=== PATIENT | male | born 1960 | race Caucasian/White ===

== ENCOUNTER 2017-06-19 15:57 | Inpatient (IN) | payer MEDICAID ==
[~2017-06-19] VITALS: Ht 190.5 cm; Wt 96.4 kg
[~2017-06-19 15:57] MED LIST: ACET-1757 PO; AMIT10TA PO; ASPI325T17 PO; ATEN100T; ATEN100T PO; ATOR40TA78 PO; CANA300T PO; CELE200C PO; DIAZ2TAB PO; DIAZ5TAB PO; DIAZ5TAB4 PO; FENO160T PO; GABA-826 PO; GLIP5TAB10 PO; GLIP5TAB3 PO; HYDR-3237 PO; KETO10TA PO; LANS30CA60 PO; LEVO500T47 PO; LIRA0.6P INJ; LOSA100T6 PO; LOSA50TA6 PO; MECL25TA2 PO; METF10002 PO; OXYC5TAB3 PO; PANT40TA3 PO; PIOG15TA22 PO; PRAV40TA2 PO; SIMV20TA3; SITA100T PO; SUMA50TA3 PO; TOPI100T8 PO; TOPI25TA52 PO; VERA120T5 PO; VERA180C4 PO; VERA240C4 PO; losartan
[2017-06-19] MEDS ORDERED: SODIUM CHLORIDE 0.9% 1,000ML IVBOLUS ONE (17:00)
[2017-06-19] MEDS ORDERED: METOCLOPRAMIDE 5 MG/ML, 2ML IVPush ONE (17:00)
[2017-06-19] MEDS ORDERED: DIPHENHYDRAMINE 50 MG/ML, 1ML IVPush ONE (17:00)
[2017-06-19 17:16] LABS: PH, VENOUS 7.379 pH (7.320-7.420)
[2017-06-19 17:24] LABS: FIO2 ROOM AIR %; HEMATOCRIT 46.1 % (39.2-51.8); HEMOGLOBIN 15.4 g/dL (13.7-18.0); WHITE BLOOD COUNT 7.3 x10^3/uL (3.4-10)
[2017-06-19 17:26] LABS: ASPARTATE AMINO TRANSFERASE 12 U/L (15-37); BLOOD UREA NITROGEN 15 mg/dL (7-18)
[2017-06-19 17:32] LABS: ACETAMINOPHEN < 2 mcg/mL (10-30)
[2017-06-19 17:46] LABS: DAU SCREEN DISCLAIMER
[2017-06-19] MEDS ORDERED: DIPHENHYDRAMINE 50 MG/ML, 1ML ONE (18:43)
[2017-06-19] MEDS ORDERED: METOCLOPRAMIDE 5 MG/ML, 2ML ONE (18:43)
[2017-06-19] MEDS ORDERED: ONDANSETRON 2MG/ML, 2ML IVPush PRN (20:00)
[2017-06-19] MEDS ORDERED: POLYETHYLENE GLYCOL 17 GM PACKET PO PRN (20:00)
[2017-06-19] MEDS ORDERED: DOCUSATE 100 MG CAPSULE PO PRN (20:00)
[2017-06-19] MEDS: NS + 20MEQ KCL 1,000 ML IV SCH (20:56)
[2017-06-19 21:00] VITALS: BP 127/57
[2017-06-19] MEDS: FENOFIBRATE 145 MG TABLET PO SCH (21:43)
[2017-06-19] MEDS: ATORVASTATIN 40 MG TABLET PO SCH (21:43)
[2017-06-19] MEDS: GABAPENTIN 100 MG CAPSULE PO SCH (21:43)
[2017-06-19] MEDS: INSULIN ASPART 100 UNITS/ML, PEN SQ-INSULIN SCH (21:44)
[2017-06-19] MEDS: ENOXAPARIN 40 MG/0.4 ML SQ SCH (21:44)
[2017-06-19] MEDS: ACETAMINOPHEN 325 MG TABLET PO PRN (23:33)
[2017-06-19] MEDS: DIAZEPAM 2 MG TABLET PO PRN (23:33)
[2017-06-20 02:10] VITALS: BP 111/61
[2017-06-20] MEDS: NS + 20MEQ KCL 1,000 ML IV SCH (03:05)
[2017-06-20] MEDS: ACETAMINOPHEN 325 MG TABLET PO PRN ×3 (03:32→22:28)
[2017-06-20 05:29] LABS: BLOOD UREA NITROGEN 16 mg/dL (7-18)
[2017-06-20] MEDS: INSULIN ASPART 100 UNITS/ML, PEN SQ-INSULIN SCH ×4 (07:52→22:40)
[2017-06-20 08:09] VITALS: BP 138/98
[2017-06-20] MEDS: GABAPENTIN 100 MG CAPSULE PO SCH ×3 (08:58→22:20)
[2017-06-20] MEDS: PIOGLITAZONE 15 MG TABLET PO SCH (08:58)
[2017-06-20] MEDS: SENNA/DOCUSATE TABLET PO SCH (08:58)
[2017-06-20] MEDS: VERAPAMIL ER 180MG TABLET.ER PO SCH (08:58)
[2017-06-20 12:56] VITALS: BP 98/61
[2017-06-20 20:25] VITALS: BP 126/71
[2017-06-20] MEDS: ATORVASTATIN 40 MG TABLET PO SCH (22:20)
[2017-06-20] MEDS: FENOFIBRATE 145 MG TABLET PO SCH (22:20)
[2017-06-20] MEDS: ENOXAPARIN 40 MG/0.4 ML SQ SCH (22:20)
[2017-06-20] MEDS: DIAZEPAM 2 MG TABLET PO PRN (22:29)
[2017-06-21] MEDS ORDERED: DIPHENHYDRAMINE 25 MG CAPSULE PO ONE
[2017-06-21 03:02] VITALS: BP 124/86
[2017-06-21 05:38] LABS: BLOOD UREA NITROGEN 13 mg/dL (7-18)
[2017-06-21] MEDS: INSULIN ASPART 100 UNITS/ML, PEN SQ-INSULIN SCH ×4 (07:59→21:34)
[2017-06-21] MEDS: GABAPENTIN 100 MG CAPSULE PO SCH ×3 (08:05→21:34)
[2017-06-21] MEDS: PIOGLITAZONE 15 MG TABLET PO SCH (08:05)
[2017-06-21] MEDS: VERAPAMIL ER 180MG TABLET.ER PO SCH (08:05)
[2017-06-21] MEDS: SENNA/DOCUSATE TABLET PO SCH (08:06)
[2017-06-21 08:09] VITALS: BP 139/98
[2017-06-21 10:31] VITALS: BP 137/83
[2017-06-21] MEDS: ACETAMINOPHEN 325 MG TABLET PO PRN ×2 (12:45→19:46)
[2017-06-21] MEDS ORDERED: LORazepam 2 MG/ML, 1ML IM PRN (14:00)
[2017-06-21] MEDS ORDERED: OLANZAPINE 2.5 MG TABLET PO ONE (14:00)
[2017-06-21] MEDS ORDERED: CITALOPRAM 20 MG TABLET PO ONE (14:00)
[2017-06-21] MEDS ORDERED: LORazepam 1MG TABLET PO PRN (14:00)
[2017-06-21 14:54] VITALS: BP 137/79
[2017-06-21] MEDS: DIAZEPAM 2 MG TABLET PO PRN (19:46)
[2017-06-21 20:05] VITALS: BP 132/96
[2017-06-21] MEDS ORDERED: ENOXAPARIN 40 MG/0.4 ML SQ SCH (21:00)
[2017-06-21] MEDS: ATORVASTATIN 40 MG TABLET PO SCH (21:34)
[2017-06-21] MEDS: FENOFIBRATE 145 MG TABLET PO SCH (21:34)
[2017-06-22 01:30] VITALS: BP 121/78
[2017-06-22] MEDS: PIOGLITAZONE 15 MG TABLET PO SCH (08:35)
[2017-06-22] MEDS: INSULIN ASPART 100 UNITS/ML, PEN SQ-INSULIN SCH ×3 (08:35→17:12)
[2017-06-22] MEDS: VERAPAMIL ER 180MG TABLET.ER PO SCH (08:35)
[2017-06-22] MEDS: GABAPENTIN 100 MG CAPSULE PO SCH ×2 (08:35→16:56)
[2017-06-22 08:41] VITALS: BP 138/86
[2017-06-22] MEDS: ACETAMINOPHEN 325 MG TABLET PO PRN (08:47)
[2017-06-22] MEDS ORDERED: SENNA/DOCUSATE TABLET PO SCH ×2 (09:00)
[2017-06-22] MEDS: metFORMIN 500 MG TABLET PO SCH ×2 (09:00→16:56)
[2017-06-22 14:56] VITALS: BP 131/84
[2017-06-22] MEDS ORDERED: LORazepam 1MG TABLET PO PRN (19:30)
[2017-06-22] MEDS ORDERED: DOCUSATE 100 MG CAPSULE PO PRN (19:30)
[2017-06-22] MEDS ORDERED: ONDANSETRON 2MG/ML, 2ML IVPush PRN (19:30)
[2017-06-22 19:34] VITALS: BP 120/79
[2017-06-22] MEDS ORDERED: CITALOPRAM 20 MG TABLET PO SCH (21:00)
[2017-06-22] MEDS ORDERED: OLANZAPINE 2.5 MG TABLET PO SCH (21:00)
[2017-06-22] MEDS ORDERED: INSULIN DETEMIR 100 UNITS/ML, PEN SQ-INSULIN SCH (21:00)
[2017-06-22] MEDS ORDERED: ENOXAPARIN 40 MG/0.4 ML SQ SCH (21:00)
[2017-06-23] MEDS ORDERED: SENNA/DOCUSATE TABLET PO SCH (09:00)
== END 2017-06-22 19:35 | DRG 638 ==
LOC: ED 16:50 → EDIP 18:55 → 4NOR 20:34 → 4WST 06-21 09:01 → 3E 06-22 12:33
PROVIDERS: ADMIT Family Medicine; ATTEND Family Medicine
DX: E11.65 Type 2 diabetes mellitus with hyperglycemia (principal); E44.0 Moderate protein-calorie malnutrition; R45.851 Suicidal ideations; E78.00 Pure hypercholesterolemia, unspecified; E78.5 Hyperlipidemia, unspecified; R35.0 Frequency of micturition; I10 Essential (primary) hypertension; Z83.3 Family history of diabetes mellitus; Z86.73 Personal history of transient ischemic attack (TIA), and cerebral infarction without residual deficits; Z91.14 Patient's other noncompliance with medication regimen; Z68.26 Body mass index [BMI] 26.0-26.9, adult
CPT/HCPCS: 36415; 71010; 80048; 80053; 80307; 80329; 81003; 82010; 82803; 82962; 83735; 85025; 93005; 96361; 96374; 96375; J1650; J1815; J3480; G0480; J1200; J2060; J2765; J7030; Q0163

== ENCOUNTER 2017-12-01 15:58 | Emergency (ER) | payer MEDICAID ==
[~2017-12-01] VITALS: Ht 190.5 cm; Wt 102.5 kg
[2017-12-01 16:36] LABS: BASOPHILS % (AUTO) 1 % (0-1); EOSINOPHILS # (AUTO) 0.28 x10^3/uL (0-0.4); EOSINOPHILS % (AUTO) 3 % (1-7); LYMPHOCYTES % (AUTO) 21 % (22-44); MD NO; MEAN CORPUSCULAR HEMOGLOBIN 29.6 pg (27.5-34.5); MEAN CORPUSCULAR HGB CONC 33.1 g/dL (33.2-36.2); MEAN CORPUSCULAR VOLUME 89.4 fL (81-97); MEAN PLATELET VOLUME 8.5 fL (7.4-10.4); MONOCYTES # (AUTO) 0.83 x10^3/uL (0.2-0.8); MONOCYTES % (AUTO) 8 % (2-9); NEUTROPHILS # (AUTO) 7.53 x10^3/uL (1.8-6.8); NEUTROPHILS % (AUTO) 68 % (42-75); PLATELET COUNT 314 x10^3/uL (130-400); RED BLOOD COUNT 5.43 x10^6/uL (4.38-5.82); RED CELL DISTRIBUTION WIDTH 13.3 % (9.4-14.8)
[2017-12-01 16:43] LABS: ALANINE AMINOTRANSFERASE 23 U/L (12-78); ANION GAP 10 mmol/L (5-15); CALCIUM 8.9 mg/dL (8.5-10.1); CHLORIDE 107 mmol/L (98-107); CREATININE 1.12 mg/dL (0.7-1.3)
[2017-12-01 16:46] LABS: ALKALINE PHOSPHATASE 91 U/L (45-117); BILIRUBIN,TOTAL 0.6 mg/dL (0.2-1.0)
[2017-12-01] MEDS ORDERED: ONDANSETRON 2MG/ML, 2ML IVPush ONE (20:00)
[2017-12-01] MEDS ORDERED: MORPHINE SULFATE 4 MG/ML, 1ML IVPush PRN (20:00)
[2017-12-01] MEDS ORDERED: SODIUM CHLORIDE 0.9% 1,000ML IVBOLUS ONE (20:00)
[2017-12-01 20:05] LABS: MICROSCOPIC NOT IND
[2017-12-01 20:19] LABS: CULTURE INDICATED? NO
[2017-12-01] MEDS ORDERED: OMNIPAQUE 350 MG/ML, 100ML BOTTLE ONE (20:37)
[2017-12-01] MEDS ORDERED: ONDANSETRON 2MG/ML, 2ML ONE (20:46)
[2017-12-01] MEDS ORDERED: MORPHINE SULFATE 4 MG/ML, 1ML ONE (20:46)
[2017-12-01 22:17] LABS: CLOSTRIDIUM DIFFICILE ANTIGEN NEGATIVE; CLOSTRIDIUM DIFFICILE TOXIN NEGATIVE (Negative)
[2017-12-01 22:37] VITALS: BP 138/94
== END 2017-12-01 22:41 | disposition home or self-care (01) ==
LOC: ED 22:09
DX: K57.30 Diverticulosis of large intestine without perforation or abscess without bleeding (principal); E11.65 Type 2 diabetes mellitus with hyperglycemia; R19.7 Diarrhea, unspecified; E78.00 Pure hypercholesterolemia, unspecified; I10 Essential (primary) hypertension; E78.5 Hyperlipidemia, unspecified; E66.9 Obesity, unspecified
CPT/HCPCS: 36415; 74177; 80053; 81003; 83690; 85025; 87324; 89055; 96361; 96374; 96375; 99285; J2405; J7030; Q9967

== ENCOUNTER 2018-04-02 20:10 | Emergency (ER) | payer MEDICAID ==
[~2018-04-02] VITALS: Ht 190.5 cm; Wt 104.5 kg
[2018-04-02 20:10] VITALS: BP 138/100
[2018-04-02] MEDS ORDERED: GABA300C10 PO (20:36)
[2018-04-02] MEDS ORDERED: DULA0.75 SQ (20:36)
[2018-04-02] MEDS ORDERED: DOXEPIN PO (20:36)
[2018-04-02] MEDS ORDERED: ASPI-496 PO (20:36)
[2018-04-02] MEDS ORDERED: METF500T5 PO (20:36)
== END 2018-04-02 21:52 | disposition home or self-care (01) ==
LOC: ED 21:46
DX: S92.535A Nondisplaced fracture of distal phalanx of left lesser toe(s), initial encounter for closed fracture (principal); E78.5 Hyperlipidemia, unspecified; I10 Essential (primary) hypertension; E11.9 Type 2 diabetes mellitus without complications; E78.00 Pure hypercholesterolemia, unspecified; Z86.73 Personal history of transient ischemic attack (TIA), and cerebral infarction without residual deficits; W20.8XXA Other cause of strike by thrown, projected or falling object, initial encounter; Y93.89 Activity, other specified; Y99.8 Other external cause status; Y92.009 Unspecified place in unspecified non-institutional (private) residence as the place of occurrence of the external cause
CPT/HCPCS: 99284

== ENCOUNTER 2018-06-02 12:26 | Inpatient (IN) | payer MEDICAID, OTHER ==
[~2018-06-02] VITALS: Ht 190.5 cm; Wt 108.2 kg
[~2018-06-02 12:26] MED LIST changes: +ASPI-496 PO; +DOXEPIN PO; +DULA0.75 SQ; +GABA300C10 PO; +METF500T5 PO
[2018-06-02] MEDS ORDERED: ASPIRIN 325 MG TABLET PO STA (12:45)
[2018-06-02] MEDS ORDERED: ASPIRIN 325 MG TABLET ONE (12:48)
[2018-06-02 12:51] LABS: BASOPHILS # (AUTO) 0.09 x10^3/uL (0-0.1); BASOPHILS % (AUTO) 1 % (0-1); EOSINOPHILS # (AUTO) 0.25 x10^3/uL (0-0.4); EOSINOPHILS % (AUTO) 3 % (1-7); LYMPHOCYTES # (AUTO) 2.47 x10^3/uL (1-3.4); LYMPHOCYTES % (AUTO) 30 % (22-44); MD NO; MEAN CORPUSCULAR HEMOGLOBIN 30.2 pg (27.5-34.5); MEAN CORPUSCULAR HGB CONC 34.1 g/dL (33.2-36.2); MEAN CORPUSCULAR VOLUME 88.4 fL (81-97); MEAN PLATELET VOLUME 9.4 fL (7.4-10.4); MONOCYTES % (AUTO) 10 % (2-9); NEUTROPHILS # (AUTO) 4.62 x10^3/uL (1.8-6.8); NEUTROPHILS % (AUTO) 56 % (42-75); PLATELET COUNT 316 x10^3/uL (130-400); RED BLOOD COUNT 5.09 x10^6/uL (4.38-5.82); RED CELL DISTRIBUTION WIDTH 13.2 % (9.4-14.8)
[2018-06-02 12:59] LABS: INTERNATIONAL NORMALIZED RATIO 1.03 (0.93-1.1); PROTHROMBIN TIME 10.6 Seconds (9.6-11.5)
[2018-06-02 13:14] LABS: TROPONIN I < 0.015 ng/mL (0.000-0.045)
[2018-06-02] MEDS ORDERED: DIPHENHYDRAMINE 50 MG/ML, 1ML ONE (13:59)
[2018-06-02] MEDS ORDERED: PROCHLORPERAZINE 5 MG/ML, 2ML IVPush ONE (14:00)
[2018-06-02] MEDS ORDERED: DIPHENHYDRAMINE 50 MG/ML, 1ML IVPush ONE (14:00)
[2018-06-02] MEDS ORDERED: PROCHLORPERAZINE 5 MG/ML, 2ML ONE (14:00)
[2018-06-02] MEDS ORDERED: SODIUM CHLORIDE 0.9% 1,000ML IVBOLUS ONE ×2 (14:00→15:30)
[2018-06-02] MEDS ORDERED: LABETALOL 5MG/ML, 20ML IVPush PRN (16:30)
[2018-06-02] MEDS ORDERED: ENALAPRILAT 1.25 MG/ML, 2ML IVPush PRN (16:30)
[2018-06-02] MEDS ORDERED: hydrALAzine 20 MG/ML, 1ML IVPush PRN (16:30)
[2018-06-02] MEDS ORDERED: ONDANSETRON 2MG/ML, 2ML IVPush PRN (16:30)
[2018-06-02] MEDS ORDERED: BACLOFEN 10 MG TABLET PO PRN (16:30)
[2018-06-02] MEDS ORDERED: ONDANSETRON ODT 4 MG PO PRN (16:30)
[2018-06-02 16:46] VITALS: BP 130/83
[2018-06-02] MEDS: SODIUM CHLORIDE 0.9% 1,000 ML IV SCH (17:25)
[2018-06-02] MEDS: GABAPENTIN 300 MG CAPSULE PO SCH ×2 (17:26→20:07)
[2018-06-02] MEDS ORDERED: ENOXAPARIN 40 MG/0.4 ML SQ SCH (17:30)
[2018-06-02 18:52] LABS: TROPONIN I < 0.015 ng/mL (0.000-0.045)
[2018-06-02 18:58] LABS: THYROID STIMULATING HORMONE 0.934 mIU/L (0.358-3.740)
[2018-06-02 19:30] LABS: HEMOGLOBIN A1C 11.3 % (4.2-6.3)
[2018-06-02 19:56] VITALS: BP 122/85
[2018-06-02] MEDS: metFORMIN XR 500 MG TAB.ER.24H PO SCH (20:07)
[2018-06-02] MEDS: PANTOPROZOLE 40MG TABLET PO SCH (20:08)
[2018-06-02 20:18] LABS: MICROSCOPIC NOT IND
[2018-06-02 20:23] LABS: CULTURE INDICATED? NO
[2018-06-02] MEDS ORDERED: ATORVASTATIN 40 MG TABLET PO SCH (21:00)
[2018-06-02] MEDS ORDERED: metFORMIN 500 MG TABLET PO SCH (21:00)
[2018-06-02 22:42] LABS: TROPONIN I < 0.015 ng/mL (0.000-0.045)
[2018-06-03] MEDS: SODIUM CHLORIDE 0.9% 1,000 ML IV SCH ×2 (02:36→10:47)
[2018-06-03 03:28] VITALS: BP 104/71
[2018-06-03 05:45] LABS: BASOPHILS # (AUTO) 0.08 x10^3/uL (0-0.1); BASOPHILS % (AUTO) 1 % (0-1); EOSINOPHILS # (AUTO) 0.28 x10^3/uL (0-0.4); EOSINOPHILS % (AUTO) 5 % (1-7); LYMPHOCYTES # (AUTO) 2.26 x10^3/uL (1-3.4); LYMPHOCYTES % (AUTO) 38 % (22-44); MD NO; MEAN CORPUSCULAR HEMOGLOBIN 29.7 pg (27.5-34.5); MEAN CORPUSCULAR HGB CONC 33.8 g/dL (33.2-36.2); MEAN PLATELET VOLUME 9.3 fL (7.4-10.4); MONOCYTES # (AUTO) 0.63 x10^3/uL (0.2-0.8); MONOCYTES % (AUTO) 11 % (2-9); NEUTROPHILS # (AUTO) 2.79 x10^3/uL (1.8-6.8); NEUTROPHILS % (AUTO) 46 % (42-75); PLATELET COUNT 241 x10^3/uL (130-400)
[2018-06-03 05:48] LABS: CHLORIDE 108 mmol/L (98-107)
[2018-06-03 05:55] LABS: ANION GAP 9 mmol/L (5-15); CALCIUM 7.8 mg/dL (8.5-10.1); CHOL/HDL RATIO 5.5; CHOLESTEROL, TOTAL 143 mg/dL (140-239); HDL CHOL % 18 % (26-37); HDL CHOLESTEROL (DIRECT) 26 mg/dL (40-60); LDL CHOLESTEROL,CALCULATED 65 mg/dL (54-169); LDL/HDL RATIO 2.5 (0.5-3.0); TRIGLYCERIDES 259 mg/dL (50-200); VLDL CHOLESTEROL 52 mg/dL (0-25)
[2018-06-03] MEDS ORDERED: ASPIRIN 325 MG TABLET EC PO SCH (06:00)
[2018-06-03 07:42] VITALS: BP 123/80
[2018-06-03] MEDS ORDERED: PIOGLITAZONE 15 MG TABLET PO SCH (09:00)
[2018-06-03] MEDS ORDERED: VERAPAMIL ER 180MG TABLET.ER PO SCH (09:00)
[2018-06-03] MEDS ORDERED: ASPIRIN 81 MG TABLET EC PO SCH (09:00)
[2018-06-03] MEDS: GABAPENTIN 300 MG CAPSULE PO SCH (09:07)
[2018-06-03] MEDS: PANTOPROZOLE 40MG TABLET PO SCH (09:07)
[2018-06-03] MEDS: metFORMIN XR 500 MG TAB.ER.24H PO SCH (09:07)
[2018-06-03 12:21] VITALS: BP 146/89
[2018-06-03] MEDS ORDERED: CIPR10DR LEFT EAR (14:22)
== END 2018-06-03 14:20 | disposition home or self-care (01) | DRG 948 ==
LOC: ED 15:03 → EDIP 15:04 → ED 15:14 → 4EST 16:41 → DCLOUNGE 06-03 14:15
PROVIDERS: ADMIT Internal Medicine; ATTEND Internal Medicine
DX: R53.1 Weakness (principal); E87.1 Hypo-osmolality and hyponatremia; R47.01 Aphasia; E11.65 Type 2 diabetes mellitus with hyperglycemia; E66.9 Obesity, unspecified; E78.00 Pure hypercholesterolemia, unspecified; E78.1 Pure hyperglyceridemia; E78.5 Hyperlipidemia, unspecified; G43.109 Migraine with aura, not intractable, without status migrainosus; G43.409 Hemiplegic migraine, not intractable, without status migrainosus; H66.92 Otitis media, unspecified, left ear; I10 Essential (primary) hypertension; K59.00 Constipation, unspecified; K76.9 Liver disease, unspecified; N28.9 Disorder of kidney and ureter, unspecified; Z79.82 Long term (current) use of aspirin; Z82.49 Family history of ischemic heart disease and other diseases of the circulatory system; Z84.1 Family history of disorders of kidney and ureter; Z86.73 Personal history of transient ischemic attack (TIA), and cerebral infarction without residual deficits; Z87.891 Personal history of nicotine dependence; Z98.1 Arthrodesis status; Z88.8 Allergy status to other drugs, medicaments and biological substances; Z68.20 Body mass index [BMI] 20.0-20.9, adult
CPT/HCPCS: 36415; 70450; 70551; 80047; 80048; 80061; 81003; 83036; 83735; 84100; 84443; 84484; 85025; 85610; 85730; 93005; 96361; 96374; 96375; 99291; J1650; 92523-GN; J0780; J1200; J7030

== ENCOUNTER → 2018-09-08 | Outpatient (CLI) | payer OTHER ==
[~2018-09-08] MED LIST changes: +CIPR10DR LEFT EAR; -LOSA100T6 PO; +LOSA100T7 PO; -LOSA50TA6 PO; +LOSA50TA7 PO; +METF500T17 PO; -METF500T5 PO
== END | disposition home or self-care (01) ==
LOC: RAD 11:23
PROVIDERS: ATTEND Nurse Practitioner
DX: N50.3 Cyst of epididymis (principal)
CPT/HCPCS: 76870; 93975

== ENCOUNTER 2018-10-29 07:31 | Outpatient (CLI) | payer OTHER ==
[~2018-10-29 07:31] MED LIST changes: +LOSA100T14 PO; -LOSA100T7 PO; +LOSA50TA14 PO; -LOSA50TA7 PO
== END 2018-10-29 23:59 | disposition home or self-care (01) ==
LOC: CFH 07:31
PROVIDERS: ATTEND Psychiatry & Neurology Neurology
DX: Q27.8 Other specified congenital malformations of peripheral vascular system (principal)
CPT/HCPCS: 70544

== ENCOUNTER → 2018-11-19 | Outpatient (CLI) | payer OTHER | END | disposition home or self-care (01) | LOC: CFH 08:11 | PROVIDERS: ATTEND Psychiatry & Neurology Neurology | DX: R51 Headache (principal); R55 Syncope and collapse | CPT/HCPCS: 70547 ==

== ENCOUNTER 2018-12-10 09:01 | Day surgery (SDC) | payer OTHER ==
[~2018-12-10] VITALS: Ht 190.5 cm; Wt 104.5 kg
[2018-12-10 09:24] VITALS: BP 111/89
[2018-12-10] MEDS ORDERED: ISOPROTERENOL 0.2MG/ML, 1ML ONE (11:04)
== END 2018-12-10 11:45 | disposition home or self-care (01) ==
LOC: CACL 09:01
PROVIDERS: ATTEND Internal Medicine Cardiovascular Disease
DX: R55 Syncope and collapse (principal); I10 Essential (primary) hypertension; E78.5 Hyperlipidemia, unspecified; K21.9 Gastro-esophageal reflux disease without esophagitis; E11.40 Type 2 diabetes mellitus with diabetic neuropathy, unspecified; G43.909 Migraine, unspecified, not intractable, without status migrainosus; Z98.890 Other specified postprocedural states; Z79.82 Long term (current) use of aspirin; Z86.73 Personal history of transient ischemic attack (TIA), and cerebral infarction without residual deficits
CPT/HCPCS: 93660

== ENCOUNTER 2019-01-05 11:33 | Inpatient (IN) | payer OTHER ==
[~2019-01-05] VITALS: Ht 190.5 cm; Wt 103.5 kg
[2019-01-05] MEDS ORDERED: SODIUM CHLORIDE FLUSH 10ML SYR IVF ONE (12:30)
--- NOTE | 2019-01-05 12:47 | NUR ---
pt to ed for lower left abd pain x1 week. pt was seen in [facility] and given cipro. pt states pain has not stopped. connected to monitors. vss. pa assessment complete. awaiting orders.
[2019-01-05] MEDS ORDERED: ONDANSETRON 2MG/ML, 2ML IVPush ONE (13:00)
[2019-01-05 13:06] LABS: BASOPHILS # (AUTO) 0.09 x10^3/uL (0-0.1); BASOPHILS % (AUTO) 1 % (0-1); EOSINOPHILS # (AUTO) 0.29 x10^3/uL (0-0.4); EOSINOPHILS % (AUTO) 4 % (1-7); LYMPHOCYTES # (AUTO) 2.23 x10^3/uL (1-3.4); LYMPHOCYTES % (AUTO) 30 % (22-44); MD NO; MEAN CORPUSCULAR HEMOGLOBIN 28.7 pg (27.5-34.5); MEAN CORPUSCULAR VOLUME 86.9 fL (81-97); MEAN PLATELET VOLUME 8.6 fL (7.4-10.4); MONOCYTES # (AUTO) 0.56 x10^3/uL (0.2-0.8); MONOCYTES % (AUTO) 8 % (2-9); NEUTROPHILS # (AUTO) 4.18 x10^3/uL (1.8-6.8); NEUTROPHILS % (AUTO) 57 % (42-75); PLATELET COUNT 332 x10^3/uL (130-400); RED BLOOD COUNT 5.29 x10^6/uL (4.38-5.82); RED CELL DISTRIBUTION WIDTH 13.4 % (9.4-14.8)
[2019-01-05] MEDS ORDERED: ONDANSETRON 2MG/ML, 2ML ONE (13:12)
[2019-01-05] MEDS ORDERED: MORPHINE SULFATE 4 MG/ML, 1ML ONE ×2 (13:12→14:13)
[2019-01-05] MEDS: MORPHINE SULFATE 4 MG/ML, 1ML IVPush PRN ×2 (13:13→14:14)
[2019-01-05 13:15] LABS: MICROSCOPIC NOT IND
[2019-01-05 13:18] LABS: CULTURE INDICATED? NO
[2019-01-05 13:18] LABS: ALANINE AMINOTRANSFERASE 33 U/L (12-78); ALBUMIN 3.6 g/dL (3.4-5.0); ANION GAP 7 mmol/L (5-15); CALCIUM 8.6 mg/dL (8.5-10.1); CHLORIDE 111 mmol/L (98-107); CREATININE 1.03 mg/dL (0.7-1.3)
[2019-01-05 13:20] LABS: ALKALINE PHOSPHATASE 80 U/L (45-117); BILIRUBIN,TOTAL 0.5 mg/dL (0.2-1.0)
--- NOTE | 2019-01-05 13:20 | NUR ---
iv established. labs drawn and sent. ua collected and sent. pt medicated per dec. edmd to bedside for assessment.
[2019-01-05] MEDS ORDERED: OMNIPAQUE 350 MG/ML, 100ML BOTTLE ONE (14:07)
--- NOTE | 2019-01-05 15:08 | NUR ---
edmd to bedside for assessment.
[2019-01-05] MEDS ORDERED: DOCUSATE 50 MG/5 ML, 10ML UDC PO ONE (15:30)
[2019-01-05] MEDS ORDERED: POLYETHYLENE GLYCOL 17 GM PACKET PO ONE (15:30)
[2019-01-05] MEDS ORDERED: METOCLOPRAMIDE 5 MG/ML, 2ML IVPush ONE (15:30)
[2019-01-05] MEDS ORDERED: METOCLOPRAMIDE 5 MG/ML, 2ML ONE (15:34)
[2019-01-05] MEDS ORDERED: DOCUSATE 100 MG CAPSULE ONE (15:34)
[2019-01-05] MEDS ORDERED: DOCUSATE 50 MG/5 ML, 10ML UDC ONE (15:43)
--- NOTE | 2019-01-05 15:43 | NUR ---
pt requesting medication for nausea. md aware. orders received. vss.
--- NOTE | 2019-01-05 16:13 | NUR ---
pt medicated per dec. pt states nausea is resolving. vss. no needs at this time. call light within reach. hospitalist assessment complete. awaiting bed assignment.
[2019-01-05] MEDS: SODIUM CHLORIDE 0.9% 1,000 ML IV SCH ×2 (16:28→22:19)
[2019-01-05] MEDS ORDERED: ONDANSETRON ODT 4 MG PO PRN (16:30)
[2019-01-05] MEDS ORDERED: ACETAMINOPHEN 325 MG TABLET PO PRN (16:30)
[2019-01-05] MEDS ORDERED: POLYETHYLENE GLYCOL 17 GM PACKET PO PRN (16:30)
[2019-01-05] MEDS ORDERED: ONDANSETRON 2MG/ML, 2ML IVPush PRN (16:30)
[2019-01-05] MEDS ORDERED: BACLOFEN 10 MG TABLET PO PRN (16:30)
[2019-01-05] MEDS ORDERED: METOCLOPRAMIDE 5 MG/ML, 2ML IVPush PRN (16:30)
[2019-01-05] MEDS ORDERED: BISACODYL 10 MG SUPP PR PRN (16:30)
[2019-01-05 17:16] VITALS: BP 133/84
[2019-01-05 17:36] LABS: HEMOGLOBIN A1C 12.3 % (4.2-6.3)
[2019-01-05 19:01] VITALS: BP 132/87
[2019-01-05] MEDS: GABAPENTIN 300 MG CAPSULE PO SCH (20:38)
[2019-01-05] MEDS: ATORVASTATIN 40 MG TABLET PO SCH (20:39)
[2019-01-05] MEDS: DOCUSATE 100 MG CAPSULE PO SCH (20:39)
[2019-01-05] MEDS: KETOROLAC 30 MG/1 ML IV PRN (20:39)
[2019-01-05] MEDS ORDERED: INSULIN LISPRO 100 UNITS/ML, PEN SQ-INSULIN SCH (21:00)
[2019-01-05] MEDS: morphine SULFATE 10 MG/ML, 1ML IVPush PRN (22:19)
[2019-01-06 05:32] VITALS: BP 119/79
[2019-01-06] MEDS: KETOROLAC 30 MG/1 ML IV PRN ×2 (05:39→11:48)
[2019-01-06] MEDS: SODIUM CHLORIDE 0.9% 1,000 ML IV SCH ×2 (05:47→14:43)
[2019-01-06 07:38] LABS: BASOPHILS # (AUTO) 0.08 x10^3/uL (0-0.1); BASOPHILS % (AUTO) 1 % (0-1); EOSINOPHILS # (AUTO) 0.25 x10^3/uL (0-0.4); EOSINOPHILS % (AUTO) 3 % (1-7); LYMPHOCYTES # (AUTO) 2.26 x10^3/uL (1-3.4); LYMPHOCYTES % (AUTO) 31 % (22-44); MD NO; MEAN CORPUSCULAR HEMOGLOBIN 28.7 pg (27.5-34.5); MEAN CORPUSCULAR HGB CONC 32.7 g/dL (33.2-36.2); MEAN CORPUSCULAR VOLUME 87.9 fL (81-97); MEAN PLATELET VOLUME 8.4 fL (7.4-10.4); MONOCYTES # (AUTO) 0.45 x10^3/uL (0.2-0.8); MONOCYTES % (AUTO) 6 % (2-9); NEUTROPHILS # (AUTO) 4.15 x10^3/uL (1.8-6.8); NEUTROPHILS % (AUTO) 58 % (42-75); PLATELET COUNT 277 x10^3/uL (130-400); RED BLOOD COUNT 4.68 x10^6/uL (4.38-5.82); RED CELL DISTRIBUTION WIDTH 13.2 % (9.4-14.8)
[2019-01-06 07:47] LABS: ALBUMIN 2.9 g/dL (3.4-5.0); ANION GAP 6 mmol/L (5-15); CALCIUM 8.4 mg/dL (8.5-10.1); CHLORIDE 108 mmol/L (98-107)
[2019-01-06 07:51] VITALS: BP 135/91
[2019-01-06 07:51] LABS: ALANINE AMINOTRANSFERASE 26 U/L (12-78); ALKALINE PHOSPHATASE 76 U/L (45-117); BILIRUBIN,TOTAL 0.6 mg/dL (0.2-1.0); CREATININE 0.87 mg/dL (0.7-1.3)
[2019-01-06] MEDS: INSULIN LISPRO 100 UNITS/ML, PEN SQ-INSULIN SCH ×5 (07:54→21:14)
[2019-01-06] MEDS: PANTOPRAZOLE 40 MG IV IVPush SCH (07:54)
[2019-01-06] MEDS: VERAPAMIL ER 180MG TABLET.ER PO SCH (07:55)
[2019-01-06] MEDS: DOCUSATE 100 MG CAPSULE PO SCH ×2 (07:55→21:12)
[2019-01-06] MEDS: ASPIRIN 81 MG TABLET EC PO SCH (07:55)
[2019-01-06] MEDS: GABAPENTIN 300 MG CAPSULE PO SCH ×3 (07:55→21:12)
[2019-01-06] MEDS: morphine SULFATE 10 MG/ML, 1ML IVPush PRN (09:21)
[2019-01-06 14:21] VITALS: BP 123/81
[2019-01-06 19:59] VITALS: BP 115/72
[2019-01-06] MEDS ORDERED: INSULIN GLARGINE 100 UNITS/ML, PEN SQ-INSULIN SCH (21:00)
[2019-01-06] MEDS: ATORVASTATIN 40 MG TABLET PO SCH (21:12)
[2019-01-06] MEDS: METOCLOPRAMIDE 5 MG/ML, 2ML IVPush SCH (21:13)
[2019-01-07] MEDS: METOCLOPRAMIDE 5 MG/ML, 2ML IVPush SCH ×3 (03:31→16:30)
[2019-01-07 03:33] VITALS: BP 126/84
[2019-01-07] MEDS: PANTOPRAZOLE 40 MG IV IVPush SCH (07:48)
[2019-01-07] MEDS: INSULIN LISPRO 100 UNITS/ML, PEN SQ-INSULIN SCH ×3 (07:52→16:30)
[2019-01-07] MEDS: DOCUSATE 100 MG CAPSULE PO SCH (07:57)
[2019-01-07] MEDS: VERAPAMIL ER 180MG TABLET.ER PO SCH (07:57)
[2019-01-07] MEDS: GABAPENTIN 300 MG CAPSULE PO SCH ×2 (07:57→16:30)
[2019-01-07] MEDS: ASPIRIN 81 MG TABLET EC PO SCH (07:57)
[2019-01-07 09:55] VITALS: BP 120/73
[2019-01-07 14:02] VITALS: BP 132/89
[2019-01-07] MEDS ORDERED: INSU100I11 SQ-INSULIN (17:01)
[2019-01-07] MEDS ORDERED: METO5TAB57 PO (17:01)
== END 2019-01-07 18:44 | disposition home or self-care (01) | DRG 74 ==
LOC: ED 15:14 → EDIP 15:50 → INTOOBSV 15:50 → OBSVTOIN 15:50 → ED 16:02 → 3NE 16:50
PROVIDERS: ADMIT Internal Medicine; ATTEND Internal Medicine
DX: E11.43 Type 2 diabetes mellitus with diabetic autonomic (poly)neuropathy (principal); K31.84 Gastroparesis; K59.00 Constipation, unspecified; G43.909 Migraine, unspecified, not intractable, without status migrainosus; E78.5 Hyperlipidemia, unspecified; I10 Essential (primary) hypertension; K57.30 Diverticulosis of large intestine without perforation or abscess without bleeding; E11.65 Type 2 diabetes mellitus with hyperglycemia; Z86.73 Personal history of transient ischemic attack (TIA), and cerebral infarction without residual deficits; Z79.4 Long term (current) use of insulin; Z79.82 Long term (current) use of aspirin; Z82.49 Family history of ischemic heart disease and other diseases of the circulatory system; Z87.891 Personal history of nicotine dependence; Z88.1 Allergy status to other antibiotic agents
CPT/HCPCS: 36415; 74177; 80053; 81003; 82962; 83036; 83690; 84443; 85025; 93005; 96374; 96375; 96376; G0378; J1885; J2405; Q9967; C9113; J1815; J2270; J2765; J7030

== ENCOUNTER → 2019-02-02 | Outpatient (CLI) | payer OTHER, MEDICARE ==
[~2019-02-02] MED LIST changes: +INSU100I11 SQ-INSULIN; +METO5TAB57 PO; +REGADENOSON 0.4 MG/5 ML SYRINGE ONE
== END | disposition home or self-care (01) ==
LOC: CFH 08:28
PROVIDERS: ATTEND Internal Medicine Cardiovascular Disease
DX: I11.9 Hypertensive heart disease without heart failure (principal); E78.5 Hyperlipidemia, unspecified; E11.9 Type 2 diabetes mellitus without complications; Z86.73 Personal history of transient ischemic attack (TIA), and cerebral infarction without residual deficits; Z87.891 Personal history of nicotine dependence
CPT/HCPCS: 78452; 93017; 93306; A9502; J2785

== ENCOUNTER 2019-02-03 08:23 | Outpatient (CLI) | payer OTHER, MEDICARE ==
[~2019-02-03 08:23] MED LIST changes: -REGADENOSON 0.4 MG/5 ML SYRINGE ONE
== END 2019-02-03 23:59 | disposition home or self-care (01) ==
LOC: CVU 08:23
PROVIDERS: ATTEND Internal Medicine Cardiovascular Disease
DX: I70.208 Unspecified atherosclerosis of native arteries of extremities, other extremity (principal); I10 Essential (primary) hypertension
CPT/HCPCS: 93930

== ENCOUNTER 2019-02-15 16:39 | Emergency (ER) | payer MEDICARE, OTHER ==
[~2019-02-15] VITALS: Ht 190.5 cm; Wt 103.1 kg
[2019-02-15 16:48] VITALS: BP 148/80
[2019-02-15 17:12] LABS: BASOPHILS # (AUTO) 0.14 x10^3/uL (0-0.1); BASOPHILS % (AUTO) 1 % (0-1); EOSINOPHILS # (AUTO) 0.49 x10^3/uL (0-0.4); EOSINOPHILS % (AUTO) 5 % (1-7); LYMPHOCYTES # (AUTO) 2.73 x10^3/uL (1-3.4); LYMPHOCYTES % (AUTO) 26 % (22-44); MD NO; MEAN CORPUSCULAR HEMOGLOBIN 29.4 pg (27.5-34.5); MEAN CORPUSCULAR HGB CONC 33.7 g/dL (33.2-36.2); MEAN CORPUSCULAR VOLUME 87.5 fL (81-97); MEAN PLATELET VOLUME 9.3 fL (7.4-10.4); MONOCYTES # (AUTO) 0.81 x10^3/uL (0.2-0.8); MONOCYTES % (AUTO) 8 % (2-9); NEUTROPHILS # (AUTO) 6.41 x10^3/uL (1.8-6.8); NEUTROPHILS % (AUTO) 61 % (42-75); PLATELET COUNT 298 x10^3/uL (130-400); RED CELL DISTRIBUTION WIDTH 13.9 % (9.4-14.8)
[2019-02-15 17:24] LABS: ALBUMIN 3.9 g/dL (3.4-5.0); ANION GAP 9 mmol/L (5-15); CALCIUM 9.7 mg/dL (8.5-10.1); CHLORIDE 107 mmol/L (98-107)
[2019-02-15 17:30] LABS: ALANINE AMINOTRANSFERASE 24 U/L (12-78); ALKALINE PHOSPHATASE 94 U/L (45-117); BILIRUBIN,TOTAL 0.9 mg/dL (0.2-1.0); CREATININE 1.37 mg/dL (0.7-1.3); TOTAL PROTEIN 7.6 g/dL (6.4-8.2); TROPONIN I < 0.015 ng/mL (0.000-0.045)
--- NOTE | 2019-02-15 17:31 | NUR ---
PT TO ROOM AT THIS THIS TIME.
--- NOTE | 2019-02-15 17:45 | NUR ---
PT TO ED FOR CHEST PAIN/PRESSURE RAD TO BILATERAL ARMS, BACK AND JAW WITH ASSOCIATED NUMBNESS AND TINGLING X3 DAYS. PT STATES ASSOCIATED SOB, SWEATING, N/V AND NEAR SYNCOPE. PT TOOK 650 ASA AND 1 DOSE NITRO CONFERENCE COORDINATOR WITH RELIEF. CONNECTED TO MONITORS. OCCASIONAL PVCS, VSS ON RA. EKG COMPLETE. AWAITING EDMD ASSESSMENT.
--- NOTE | 2019-02-15 18:40 | NUR ---
EDMD TO BS TO UPDATE ON POC. PLAN TO DC.
== END 2019-02-15 19:14 | disposition home or self-care (01) ==
LOC: ED 19:00
DX: R07.89 Other chest pain (principal); I10 Essential (primary) hypertension; E11.9 Type 2 diabetes mellitus without complications; E78.00 Pure hypercholesterolemia, unspecified; E78.5 Hyperlipidemia, unspecified; E11.65 Type 2 diabetes mellitus with hyperglycemia; Z86.73 Personal history of transient ischemic attack (TIA), and cerebral infarction without residual deficits; Z87.891 Personal history of nicotine dependence
CPT/HCPCS: 36415; 71045; 80053; 84484; 85025; 93005; 99284

== ENCOUNTER 2019-03-11 10:30 | Observation (INO) | payer OTHER, MEDICARE ==
[2019-03-10 11:09] LABS: BASOPHILS # (AUTO) 0.05 x10^3/uL (0-0.1); BASOPHILS % (AUTO) 1 % (0-1); EOSINOPHILS % (AUTO) 4 % (1-7); LYMPHOCYTES # (AUTO) 2.08 x10^3/uL (1-3.4); LYMPHOCYTES % (AUTO) 30 % (22-44); MD NO; MEAN CORPUSCULAR HEMOGLOBIN 30.1 pg (27.5-34.5); MEAN CORPUSCULAR HGB CONC 33.1 g/dL (33.2-36.2); MEAN CORPUSCULAR VOLUME 90.8 fL (81-97); MONOCYTES # (AUTO) 0.49 x10^3/uL (0.2-0.8); MONOCYTES % (AUTO) 7 % (2-9); NEUTROPHILS # (AUTO) 4.15 x10^3/uL (1.8-6.8); NEUTROPHILS % (AUTO) 59 % (42-75); PLATELET COUNT 291 x10^3/uL (130-400); RED BLOOD COUNT 4.92 x10^6/uL (4.38-5.82); RED CELL DISTRIBUTION WIDTH 14.2 % (9.4-14.8)
[2019-03-10 11:22] VITALS: BP 141/101
[2019-03-10 11:26] LABS: ANION GAP 7 mmol/L (5-15); CALCIUM 8.9 mg/dL (8.5-10.1); CHLORIDE 108 mmol/L (98-107); CREATININE 1.29 mg/dL (0.7-1.3)
[~2019-03-11] VITALS: Ht 190.5 cm; Wt 107.6 kg
[~2019-03-11 10:30] MED LIST changes: +EREN70AU2 SQ; +INSU300I SQ; +LISI5TAB7 PO; +METF10007 PO; +PANT40TA5 PO; +PIOG45TA20 PO; +TAMS-11 PO; +VERA240C2 PO
[2019-03-11] MEDS ORDERED: MIDAZOLAM 1 MG/ML, 5ML ONE ×2 (12:00→13:46)
[2019-03-11] MEDS ORDERED: LIDOCAINE 2%, 20ML ONE (12:00)
[2019-03-11] MEDS ORDERED: FENTANYL PF 100 MCG/2ML ONE ×4 (12:00→13:46)
[2019-03-11] MEDS ORDERED: BIVALIRUDIN 250 MG ONE (12:39)
[2019-03-11] MEDS ORDERED: TICAGRELOR 90 MG TABLET ONE (12:39)
[2019-03-11] MEDS ORDERED: ONDANSETRON 2MG/ML, 2ML ONE (13:23)
[2019-03-11] MEDS ORDERED: METOPROLOL 1 MG/ML, 5ML ONE (15:11)
[2019-03-11] MEDS ORDERED: MAALOX/HYOSCYAMINE/LIDOCAINE 45 ML BTL PO ONE (15:30)
[2019-03-11] MEDS: GABAPENTIN 300 MG CAPSULE PO SCH ×2 (16:00→20:06)
[2019-03-11 16:49] VITALS: BP 160/105
[2019-03-11] MEDS ORDERED: MORPHINE SULFATE 4 MG/ML, 1ML ONE (17:20)
[2019-03-11] MEDS: MORPHINE SULFATE 4 MG/ML, 1ML IVPush PRN ×2 (17:25→21:58)
[2019-03-11 17:28] VITALS: BP 166/117
[2019-03-11] MEDS ORDERED: HYDROcodone/APAP 5/325 TABLET PO PRN (17:30)
[2019-03-11] MEDS ORDERED: hydrALAzine 20 MG/ML, 1ML IV PRN (17:30)
[2019-03-11] MEDS ORDERED: LABETALOL 5 MG/ML SYRINGE IVPush PRN (17:30)
[2019-03-11] MEDS: METOPROLOL TARTRATE 25 MG TABLET PO SCH (18:13)
[2019-03-11 19:41] VITALS: BP 160/116
[2019-03-11] MEDS: TICAGRELOR 90 MG TABLET PO SCH (20:06)
[2019-03-11 20:50] VITALS: BP 146/90
[2019-03-11] MEDS ORDERED: ATORVASTATIN 40 MG TABLET PO SCH (21:00)
[2019-03-11] MEDS ORDERED: metFORMIN 500 MG TABLET PO SCH (21:00)
[2019-03-12 01:56] VITALS: BP 143/87
[2019-03-12] MEDS: METOPROLOL TARTRATE 25 MG TABLET PO SCH (06:01)
[2019-03-12 07:15] VITALS: BP 160/113
[2019-03-12] MEDS: TICAGRELOR 90 MG TABLET PO SCH (07:56)
[2019-03-12] MEDS: GABAPENTIN 300 MG CAPSULE PO SCH (07:57)
[2019-03-12] MEDS ORDERED: MAALOX/HYOSCYAMINE/LIDOCAINE 45 ML BTL PO ONE (08:30)
[2019-03-12] MEDS ORDERED: ISOSORBIDE MONONITRATE ER 30 MG TABLET PO SCH (09:00)
[2019-03-12] MEDS ORDERED: PANTOPROZOLE 40MG TABLET PO SCH (09:00)
[2019-03-12] MEDS ORDERED: PIOGLITAZONE 15 MG TABLET PO SCH (09:00)
[2019-03-12] MEDS ORDERED: INSULIN GLARGINE 100 UNITS/ML, PEN SQ-INSULIN SCH (09:00)
[2019-03-12] MEDS ORDERED: LISINOPRIL 5 MG TABLET PO SCH (09:00)
[2019-03-12] MEDS ORDERED: TAMSULOSIN 0.4 MG CAP.ER.24H PO SCH (09:00)
[2019-03-12] MEDS ORDERED: ASPIRIN 81 MG TABLET EC PO SCH (09:00)
[2019-03-12] MEDS ORDERED: VERAPAMIL ER 240MG TABLET.ER PO SCH (09:00)
[2019-03-12 09:39] LABS: ANION GAP 7 mmol/L (5-15); CALCIUM 8.8 mg/dL (8.5-10.1); CHLORIDE 105 mmol/L (98-107); CREATININE 1.03 mg/dL (0.7-1.3)
[2019-03-12] MEDS ORDERED: TICA90TA PO ×2 (09:51)
[2019-03-12] MEDS ORDERED: METO25TA35 PO (09:51)
[2019-03-12] MEDS ORDERED: ISOS30TA8 PO (09:51)
[2019-03-12 10:09] VITALS: BP 136/82
[2019-03-12] MEDS ORDERED: CLOP75TA52 PO (10:50)
== END 2019-03-12 14:40 | disposition home or self-care (01) ==
LOC: CACL 10:30 → 5SO 16:11 → CACL 22:48 → 5SO 22:49 → DCLOUNGE 03-12 14:30
PROVIDERS: ADMIT Internal Medicine Cardiovascular Disease; ATTEND Internal Medicine Cardiovascular Disease
DX: I25.10 Atherosclerotic heart disease of native coronary artery without angina pectoris (principal); E11.40 Type 2 diabetes mellitus with diabetic neuropathy, unspecified; G62.9 Polyneuropathy, unspecified; G43.909 Migraine, unspecified, not intractable, without status migrainosus; R53.1 Weakness; K21.9 Gastro-esophageal reflux disease without esophagitis; R42 Dizziness and giddiness; I63.9 Cerebral infarction, unspecified; E11.22 Type 2 diabetes mellitus with diabetic chronic kidney disease; I12.9 Hypertensive chronic kidney disease with stage 1 through stage 4 chronic kidney disease, or unspecified chronic kidney disease; N18.3 Chronic kidney disease, stage 3 (moderate); E78.2 Mixed hyperlipidemia; Z79.82 Long term (current) use of aspirin; Z79.899 Other long term (current) drug therapy
CPT/HCPCS: 36415; 80048; 82962; 85014; 85018; 85025; 93005; 93308; 93325; 93458; 93571; 93572; 96374; 96376; 99156; 99157; C1725; C1760; C1769; C1887; C1894; C9600; G0378; J0583; J1815; J2250; J2270; J2405; J3010; J3490; Q9967

== ENCOUNTER 2019-03-30 12:03 | Inpatient (IN) | payer OTHER, MEDICARE ==
[~2019-03-30] VITALS: Ht 190.5 cm; Wt 106.3 kg
[~2019-03-30 12:03] MED LIST changes: +CLOP75TA52 PO; +ISOS30TA8 PO; +METO25TA35 PO; +TICA90TA PO
--- NOTE | 2019-03-30 12:08 | NUR ---
RECEIVED PATIENT IN TRAUMA 4. EKG IN PROGRESS. DR. HILLIARD AT BEDSIDE.
[2019-03-30] MEDS ORDERED: ASPIRIN 81 MG TABLET CHEW ONE (12:16)
[2019-03-30 12:29] LABS: BASOPHILS # (AUTO) 0.07 x10^3/uL (0-0.1); BASOPHILS % (AUTO) 1 % (0-1); EOSINOPHILS # (AUTO) 0.19 x10^3/uL (0-0.4); EOSINOPHILS % (AUTO) 2 % (1-7); LYMPHOCYTES % (AUTO) 20 % (22-44); MD NO; MEAN CORPUSCULAR HEMOGLOBIN 29.2 pg (27.5-34.5); MEAN CORPUSCULAR HGB CONC 32.8 g/dL (33.2-36.2); MEAN CORPUSCULAR VOLUME 89.1 fL (81-97); MEAN PLATELET VOLUME 8.2 fL (7.4-10.4); MONOCYTES # (AUTO) 0.75 x10^3/uL (0.2-0.8); MONOCYTES % (AUTO) 9 % (2-9); NEUTROPHILS # (AUTO) 5.71 x10^3/uL (1.8-6.8); NEUTROPHILS % (AUTO) 68 % (42-75); PLATELET COUNT 359 x10^3/uL (130-400); RED BLOOD COUNT 5.16 x10^6/uL (4.38-5.82); RED CELL DISTRIBUTION WIDTH 14.3 % (9.4-14.8)
[2019-03-30] MEDS ORDERED: ASPIRIN 81 MG TABLET CHEW PO ONE (12:30)
[2019-03-30 12:39] LABS: INTERNATIONAL NORMALIZED RATIO 1.04 (0.93-1.1); PROTHROMBIN TIME 10.9 Seconds (9.6-11.5)
[2019-03-30 12:41] LABS: ALBUMIN 3.8 g/dL (3.4-5.0); ANION GAP 10 mmol/L (5-15); CALCIUM 9.2 mg/dL (8.5-10.1); CHLORIDE 107 mmol/L (98-107); CREATININE 1.18 mg/dL (0.7-1.3)
[2019-03-30 12:45] LABS: ALKALINE PHOSPHATASE 84 U/L (45-117); BILIRUBIN,TOTAL 0.6 mg/dL (0.2-1.0); TOTAL PROTEIN 7.7 g/dL (6.4-8.2); TROPONIN I < 0.015 ng/mL (0.000-0.045)
--- NOTE | 2019-03-30 12:45 | NUR ---
REPEAT EKG PERFORMED AND HANDED TO DR. HILLIARD.
[2019-03-30 12:46] LABS: ALANINE AMINOTRANSFERASE 20 U/L (12-78)
--- NOTE | 2019-03-30 13:27 | NUR ---
[facility] TELEPHONE HAND-OFF REPORT GIVEN TO NADYA RITCHIE ON TELE.
[2019-03-30] MEDS ORDERED: SODIUM CHLORIDE 0.9% 1,000 ML IV SCH (13:30)
[2019-03-30] MEDS ORDERED: LABETALOL 5MG/ML, 20ML IVPush PRN (13:30)
[2019-03-30] MEDS ORDERED: morphine SULFATE 10 MG/ML, 1ML IVPush PRN (13:30)
[2019-03-30] MEDS ORDERED: ONDANSETRON ODT 4 MG PO PRN (13:30)
[2019-03-30] MEDS ORDERED: ONDANSETRON 2MG/ML, 2ML IVPush PRN (13:30)
[2019-03-30] MEDS ORDERED: ACETAMINOPHEN 325 MG TABLET PO PRN (13:30)
[2019-03-30] MEDS ORDERED: NITROGLYCERIN 0.4 MG BOTTLE (25 TABS) SL PRN (13:30)
[2019-03-30] MEDS: SODIUM CHLORIDE 0.9% 1,000 ML IV SCH ×3 (13:41→23:17)
[2019-03-30 14:08] LABS: BASOPHILS # (AUTO) 0.04 x10^3/uL (0-0.1); BASOPHILS % (AUTO) 1 % (0-1); EOSINOPHILS # (AUTO) 0.18 x10^3/uL (0-0.4); EOSINOPHILS % (AUTO) 2 % (1-7); LYMPHOCYTES # (AUTO) 1.68 x10^3/uL (1-3.4); LYMPHOCYTES % (AUTO) 18 % (22-44); MD NO; MEAN CORPUSCULAR HEMOGLOBIN 29.6 pg (27.5-34.5); MEAN CORPUSCULAR HGB CONC 32.9 g/dL (33.2-36.2); MEAN CORPUSCULAR VOLUME 90.1 fL (81-97); MEAN PLATELET VOLUME 8.2 fL (7.4-10.4); MONOCYTES # (AUTO) 0.85 x10^3/uL (0.2-0.8); MONOCYTES % (AUTO) 9 % (2-9); NEUTROPHILS % (AUTO) 70 % (42-75); PLATELET COUNT 356 x10^3/uL (130-400); RED BLOOD COUNT 4.93 x10^6/uL (4.38-5.82); RED CELL DISTRIBUTION WIDTH 13.9 % (9.4-14.8)
[2019-03-30 14:12] LABS: TROPONIN I < 0.015 ng/mL (0.000-0.045)
[2019-03-30 14:39] LABS: HEMOGLOBIN A1C 8.7 % (4.2-6.3)
[2019-03-30 15:33] VITALS: BP 143/97
[2019-03-30] MEDS: GABAPENTIN 300 MG CAPSULE PO SCH ×2 (15:54→23:16)
[2019-03-30] MEDS: HEPARIN 5,000 UNITS/ML, 1ML SQ SCH ×2 (15:54→23:16)
[2019-03-30] MEDS: INSULIN LISPRO 100 UNITS/ML, PEN SQ-INSULIN SCH ×2 (15:56→21:00)
[2019-03-30] MEDS: METOPROLOL TARTRATE 25 MG TABLET PO SCH (18:16)
[2019-03-30] MEDS ORDERED: MIDAZOLAM 1 MG/ML, 5ML ONE (18:55)
[2019-03-30] MEDS ORDERED: FENTANYL PF 100 MCG/2ML ONE (18:55)
[2019-03-30] MEDS ORDERED: DIPHENHYDRAMINE 50 MG/ML, 1ML ONE (18:55)
[2019-03-30] MEDS ORDERED: VERAPAMIL 2.5 MG/ML, 2ML ONE (18:55)
[2019-03-30] MEDS ORDERED: HEPARIN 1,000 UNITS/ML, 10ML ONE (18:56)
[2019-03-30] MEDS ORDERED: LIDOCAINE-MPF 1%, 5ML ONE (18:56)
[2019-03-30] MEDS ORDERED: BIVALIRUDIN 250 MG ONE (18:56)
[2019-03-30] MEDS ORDERED: CLOPIDOGREL 300 MG TABLET ONE (18:56)
[2019-03-30] MEDS ORDERED: CLOPIDOGREL 75 MG TABLET ONE (20:11)
[2019-03-30 21:00] VITALS: BP 148/100
[2019-03-30] MEDS ORDERED: ATORVASTATIN 40 MG TABLET PO SCH (21:00)
[2019-03-30 22:16] LABS: TROPONIN I 0.062 ng/mL (0.000-0.045)
[2019-03-31 02:48] LABS: TROPONIN I 0.298 ng/mL (0.000-0.045)
[2019-03-31 04:02] VITALS: BP 138/98
[2019-03-31] MEDS: SODIUM CHLORIDE 0.9% 1,000 ML IV SCH (04:45)
[2019-03-31] MEDS: METOPROLOL TARTRATE 25 MG TABLET PO SCH (05:43)
[2019-03-31 06:07] LABS: CHLORIDE 109 mmol/L (98-107)
[2019-03-31 06:14] LABS: ALANINE AMINOTRANSFERASE 18 U/L (12-78); ALBUMIN 3.3 g/dL (3.4-5.0); ALKALINE PHOSPHATASE 75 U/L (45-117); ANION GAP 9 mmol/L (5-15); CALCIUM 8.7 mg/dL (8.5-10.1); CREATININE 1.09 mg/dL (0.7-1.3); TOTAL PROTEIN 6.8 g/dL (6.4-8.2)
[2019-03-31] MEDS: INSULIN LISPRO 100 UNITS/ML, PEN SQ-INSULIN SCH ×2 (07:00→11:22)
[2019-03-31] MEDS: HEPARIN 5,000 UNITS/ML, 1ML SQ SCH (07:30)
[2019-03-31] MEDS: GABAPENTIN 300 MG CAPSULE PO SCH (07:30)
[2019-03-31 07:36] VITALS: BP 147/97
[2019-03-31] MEDS ORDERED: TAMSULOSIN 0.4 MG CAP.ER.24H PO SCH (09:00)
[2019-03-31] MEDS ORDERED: ISOSORBIDE MONONITRATE ER 30 MG TABLET PO SCH (09:00)
[2019-03-31] MEDS ORDERED: ASPIRIN 81 MG TABLET EC PO SCH (09:00)
[2019-03-31] MEDS ORDERED: ISOSORBIDE MONONITRATE ER 60 MG TABLET PO SCH (09:00)
[2019-03-31] MEDS ORDERED: LISINOPRIL 5 MG TABLET PO SCH (09:00)
[2019-03-31] MEDS ORDERED: LISINOPRIL 20 MG TABLET PO SCH (09:00)
[2019-03-31] MEDS ORDERED: PANTOPROZOLE 40MG TABLET PO SCH (09:00)
[2019-03-31] MEDS ORDERED: CLOPIDOGREL 75 MG TABLET PO SCH (09:00)
[2019-03-31] MEDS ORDERED: LISINOPRIL 5 MG TABLET ONE (09:25)
[2019-03-31] MEDS ORDERED: LISINOPRIL 5 MG TABLET PO ONE (09:30)
[2019-03-31 12:36] VITALS: BP 93/66
[2019-03-31] MEDS ORDERED: NITR0.4T28 SL (13:50)
[2019-03-31] MEDS ORDERED: LISI-167 PO (13:50)
[2019-03-31] MEDS ORDERED: METO25TA35 PO (13:50)
[2019-03-31] MEDS ORDERED: ISOS60TA36 PO (13:50)
[2019-03-31] MEDS ORDERED: METOPROLOL TARTRATE 25 MG TABLET PO SCH (18:00)
[2019-04-01] MEDS ORDERED: LISINOPRIL 10 MG TABLET PO SCH (09:00)
[2019-04-01] MEDS ORDERED: LISINOPRIL 20 MG TABLET PO SCH (09:00)
== END 2019-03-31 15:00 | disposition home or self-care (01) | DRG 287 ==
LOC: ED 12:09 → EDIP 12:54 → 5SO 13:52 → DCLOUNGE 03-31 14:56
PROVIDERS: ADMIT Hospitalist; ATTEND Hospitalist
PROC: 4A023N7 Measurement of Cardiac Sampling and Pressure, Left Heart, Percutaneous Approach (ICD-10-PCS; principal; 2019-03-30)
PROC: B2111ZZ Fluoroscopy of Multiple Coronary Arteries using Low Osmolar Contrast (ICD-10-PCS; 2019-03-30)
PROC: B2151ZZ Fluoroscopy of Left Heart using Low Osmolar Contrast (ICD-10-PCS; 2019-03-30)
DX: I25.110 Atherosclerotic heart disease of native coronary artery with unstable angina pectoris (principal); I10 Essential (primary) hypertension; E78.5 Hyperlipidemia, unspecified; G43.909 Migraine, unspecified, not intractable, without status migrainosus; Z96.611 Presence of right artificial shoulder joint; K21.9 Gastro-esophageal reflux disease without esophagitis; G47.30 Sleep apnea, unspecified; E78.00 Pure hypercholesterolemia, unspecified; N40.0 Benign prostatic hyperplasia without lower urinary tract symptoms; E11.65 Type 2 diabetes mellitus with hyperglycemia; Z79.4 Long term (current) use of insulin; Z86.73 Personal history of transient ischemic attack (TIA), and cerebral infarction without residual deficits; Z91.5 Personal history of self-harm; Z87.891 Personal history of nicotine dependence; Z82.49 Family history of ischemic heart disease and other diseases of the circulatory system; Z88.1 Allergy status to other antibiotic agents; Z98.61 Coronary angioplasty status
CPT/HCPCS: 36415; 71045; 80053; 82962; 83036; 83735; 84484; 85025; 85610; 85730; 92920; 93005; 93458; 99156; 99157; 99285; C1769; C1894; G0378; J0583; J1644; J2250; J3010; 92928; C1725; C1887; J1200; J7030; Q9967

== ENCOUNTER 2019-10-16 20:38 | Inpatient (IN) | payer OTHER, MEDICARE ==
[~2019-10-16] VITALS: Ht 190.5 cm; Wt 109.1 kg
[~2019-10-16 20:38] MED LIST changes: -ACET-1757 PO; +ACET-2065 PO; +ISOS60TA36 PO; +LISI-167 PO; +NITR0.4T28 SL
[2019-10-16] MEDS ORDERED: SODIUM CHLORIDE FLUSH 10ML SYR IVF ONE (21:30)
[2019-10-16 21:32] LABS: BASOPHILS # (AUTO) 0.06 x10^3/uL (0-0.1); BASOPHILS % (AUTO) 1 % (0-1); EOSINOPHILS # (AUTO) 0.38 x10^3/uL (0-0.4); EOSINOPHILS % (AUTO) 4 % (1-7); LYMPHOCYTES # (AUTO) 2.92 x10^3/uL (1-3.4); LYMPHOCYTES % (AUTO) 32 % (22-44); MD NO; MEAN CORPUSCULAR HEMOGLOBIN 29.7 pg (27.5-34.5); MEAN CORPUSCULAR HGB CONC 32.7 g/dL (33.2-36.2); MEAN CORPUSCULAR VOLUME 90.7 fL (81-97); MEAN PLATELET VOLUME 9.2 fL (7.4-10.4); MONOCYTES # (AUTO) 0.76 x10^3/uL (0.2-0.8); MONOCYTES % (AUTO) 8 % (2-9); NEUTROPHILS % (AUTO) 55 % (42-75); PLATELET COUNT 285 x10^3/uL (130-400); RED BLOOD COUNT 4.62 x10^6/uL (4.38-5.82); RED CELL DISTRIBUTION WIDTH 13.6 % (9.4-14.8)
[2019-10-16 21:36] LABS: ALANINE AMINOTRANSFERASE 25 U/L (12-78); ALBUMIN 3.6 g/dL (3.4-5.0); ANION GAP 5 mmol/L (5-15); CALCIUM 8.6 mg/dL (8.5-10.1); CHLORIDE 110 mmol/L (98-107)
[2019-10-16] MEDS ORDERED: ONDANSETRON 2MG/ML, 2ML ONE (21:38)
[2019-10-16 21:41] LABS: ALKALINE PHOSPHATASE 64 U/L (45-117); BILIRUBIN,TOTAL 0.4 mg/dL (0.2-1.0); CREATININE 1.23 mg/dL (0.7-1.3); TOTAL PROTEIN 6.9 g/dL (6.4-8.2); TROPONIN I < 0.015 ng/mL (0.000-0.045)
--- NOTE | 2019-10-16 21:46 | NUR ---
PT HAVING NAUSEA, MEDICATED PER MAR, SPOUSE AT BEDSIDE. NO OTHER NEEDS AT THIS TIME.
[2019-10-16] MEDS ORDERED: ONDANSETRON 2MG/ML, 2ML IVPush ONE (22:00)
[2019-10-16] MEDS ORDERED: MORPHINE SULFATE 4 MG/ML, 1ML ONE (22:07)
[2019-10-16] MEDS ORDERED: NITROGLYCERIN OINT 2%, 1GM TP ONE ×2 (22:07→22:30)
[2019-10-16] MEDS: MORPHINE SULFATE 4 MG/ML, 1ML IVPush PRN (22:11)
--- NOTE | 2019-10-16 23:11 | NUR ---
PT SITTING UPRIGHT IN BED. NO NEEDS AT THIS TIME.
--- NOTE | 2019-10-16 23:54 | NUR ---
PT PLACED IN HOSPITAL BED. AWAITING ROOM ON TELE.
--- NOTE | 2019-10-17 00:07 | NUR ---
PT PROVIDED A HOSPITAL FLOOR BED FOR PT COMFORT.
--- NOTE | 2019-10-17 00:33 | NUR ---
PT RESTING WITH EYES CLOSED. MONITOR IN PLACE.
[2019-10-17] MEDS ORDERED: NITROGLYCERIN 0.4 MG BOTTLE (25 TABS) SL PRN (01:00)
[2019-10-17] MEDS ORDERED: ENOXAPARIN 40 MG/0.4 ML SQ SCH (01:00)
[2019-10-17] MEDS ORDERED: ENALAPRILAT 1.25 MG/ML, 2ML IVPush PRN (01:00)
[2019-10-17] MEDS ORDERED: TEMAZEPAM 15 MG CAPSULE PO PRN (01:00)
[2019-10-17] MEDS ORDERED: LIDODERM 5% PATCH TD PRN (01:00)
[2019-10-17] MEDS ORDERED: DOCUSATE 100 MG CAPSULE PO PRN (01:00)
[2019-10-17] MEDS: MAALOX/HYOSCYAMINE/LIDOCAINE 45 ML BTL PO ONE ×2 (01:00→06:04)
[2019-10-17] MEDS ORDERED: ONDANSETRON ODT 4 MG PO PRN (01:00)
[2019-10-17] MEDS ORDERED: ACETAMINOPHEN 325 MG TABLET PO PRN (01:00)
[2019-10-17] MEDS ORDERED: NITROGLYCERIN SINGLE TAB 0.4 MG SL PRN (01:30)
[2019-10-17] MEDS ORDERED: INSULIN GLARGINE HUM REC ANLOG 20 UNIT SQ SCH (01:30)
--- NOTE | 2019-10-17 01:32 | NUR ---
PT RESTING WITH EYES CLOSED. MONITOR IN PLACE.
--- NOTE | 2019-10-17 02:03 | NUR ---
Report from Rubio [place]. Pt resting in bed with eyes closed, resp even and unlabored, NESTOR.
--- NOTE | 2019-10-17 03:07 | NUR ---
Pt resting in bed with eyes closed, resp even and unlabored, NADN.
[2019-10-17 03:15] LABS: BASOPHILS # (AUTO) 0.06 x10^3/uL (0-0.1); BASOPHILS % (AUTO) 1 % (0-1); EOSINOPHILS # (AUTO) 0.31 x10^3/uL (0-0.4); EOSINOPHILS % (AUTO) 4 % (1-7); LYMPHOCYTES # (AUTO) 2.84 x10^3/uL (1-3.4); LYMPHOCYTES % (AUTO) 37 % (22-44); MD NO; MEAN CORPUSCULAR HEMOGLOBIN 30.1 pg (27.5-34.5); MEAN CORPUSCULAR HGB CONC 33.1 g/dL (33.2-36.2); MEAN PLATELET VOLUME 8.9 fL (7.4-10.4); MONOCYTES # (AUTO) 0.72 x10^3/uL (0.2-0.8); MONOCYTES % (AUTO) 9 % (2-9); NEUTROPHILS # (AUTO) 3.69 x10^3/uL (1.8-6.8); NEUTROPHILS % (AUTO) 49 % (42-75); PLATELET COUNT 245 x10^3/uL (130-400); RED BLOOD COUNT 4.46 x10^6/uL (4.38-5.82); RED CELL DISTRIBUTION WIDTH 13.6 % (9.4-14.8)
[2019-10-17 03:26] LABS: ANION GAP 6 mmol/L (5-15); CALCIUM 7.9 mg/dL (8.5-10.1); CHLORIDE 111 mmol/L (98-107); CREATININE 1.19 mg/dL (0.7-1.3)
[2019-10-17 03:30] LABS: TROPONIN I < 0.015 ng/mL (0.000-0.045)
--- NOTE | 2019-10-17 04:10 | NUR ---
Pt continues resting in bed with eyes closed, resp even and unlabored, NADN.
--- NOTE | 2019-10-17 05:12 | NUR ---
Pt continues resting in bed with eyes closed, resp even and unlabored, NADN.
[2019-10-17] MEDS ORDERED: METOPROLOL TARTRATE 25 MG TABLET ONE (06:02)
[2019-10-17] MEDS ORDERED: ENOXAPARIN 40 MG/0.4 ML ONE (06:02)
[2019-10-17] MEDS ORDERED: MAALOX/HYOSCYAMINE/LIDOCAINE 45 ML BTL ONE (06:03)
[2019-10-17] MEDS: METOPROLOL TARTRATE 25 MG TABLET PO SCH ×2 (06:04→17:40)
[2019-10-17] MEDS: ENOXAPARIN 40 MG/0.4 ML SQ SCH (06:05)
--- NOTE | 2019-10-17 06:08 | NUR ---
Pt medicated per DEC. Pt states he now would like to have the GI cocktail. Pt able to reposition self in bed without difficulty. Pt denies other needs. Breakfast tray ordered for pt.
--- NOTE | 2019-10-17 07:00 | NUR ---
Report received from NADYA [place]. Assuming primary care of pt.
[2019-10-17 08:24] VITALS: BP 109/69
[2019-10-17] MEDS ORDERED: TAMSULOSIN 0.4 MG CAP.ER.24H ONE (08:39)
[2019-10-17] MEDS ORDERED: ASPIRIN 81 MG TABLET EC ONE (08:40)
[2019-10-17] MEDS ORDERED: CLOPIDOGREL 75 MG TABLET ONE (08:40)
[2019-10-17] MEDS ORDERED: MORPHINE SULFATE 4 MG/ML, 1ML ONE (08:40)
[2019-10-17] MEDS ORDERED: GABAPENTIN 300 MG CAPSULE ONE (08:40)
[2019-10-17] MEDS ORDERED: LISINOPRIL 10 MG TABLET ONE (08:40)
[2019-10-17] MEDS ORDERED: PANTOPRAZOLE 20MG TABLET ONE (08:40)
[2019-10-17] MEDS: TAMSULOSIN 0.4 MG CAP.ER.24H PO SCH (08:45)
[2019-10-17] MEDS: CLOPIDOGREL 75 MG TABLET PO SCH (08:45)
[2019-10-17] MEDS: PANTOPROZOLE 40MG TABLET PO SCH (08:45)
[2019-10-17] MEDS: GABAPENTIN 300 MG CAPSULE PO SCH ×3 (08:46→20:12)
[2019-10-17] MEDS: ASPIRIN 81 MG TABLET EC PO SCH (08:46)
[2019-10-17] MEDS: LISINOPRIL 10 MG TABLET PO SCH (08:46)
[2019-10-17] MEDS: MORPHINE SULFATE 4 MG/ML, 1ML IVPush PRN (08:47)
[2019-10-17] MEDS ORDERED: PIOGLITAZONE HCL 45 MG PO SCH (09:00)
[2019-10-17] MEDS: ISOSORBIDE MONONITRATE ER 60 MG TABLET PO SCH (09:06)
[2019-10-17 10:03] LABS: TROPONIN I < 0.015 ng/mL (0.000-0.045)
[2019-10-17] MEDS ORDERED: DIPHENHYDRAMINE 25 MG CAPSULE PO PRN (11:30)
[2019-10-17] MEDS ORDERED: MAGNESIUM SULFATE PMX 2GM/50ML 50 ML IV ONE (11:30)
[2019-10-17 12:50] VITALS: BP 111/64
[2019-10-17] MEDS: MAALOX/HYOSCYAMINE/LIDOCAINE 45 ML BTL PO PRN (14:27)
[2019-10-17] MEDS: INSULIN GLARGINE 100 UNITS/ML, PEN SQ-INSULIN SCH (14:27)
[2019-10-17 14:30] VITALS: BP 101/57
[2019-10-17] MEDS ORDERED: GLUCAGON 1 MG IM PRN (17:00)
[2019-10-17] MEDS ORDERED: DEXTROSE 4 GM TAB.CHEW PO PRN (17:00)
[2019-10-17] MEDS ORDERED: DEXTROSE 50%, 50ML SYRINGE IVPush PRN (17:00)
[2019-10-17] MEDS: ATORVASTATIN 40 MG TABLET PO SCH (20:11)
[2019-10-17 20:13] VITALS: BP 89/64
[2019-10-17] MEDS: INSULIN LISPRO 100 UNITS/ML, PEN SQ-INSULIN SCH (20:26)
[2019-10-17] MEDS: SODIUM CHLORIDE FLUSH 10ML SYR IVF SCH (20:27)
[2019-10-18] MEDS ORDERED: ONDANSETRON 2MG/ML, 2ML ONE (01:53)
[2019-10-18] MEDS: ONDANSETRON 2MG/ML, 2ML IVPush PRN ×3 (01:59→21:55)
[2019-10-18 02:19] VITALS: BP 100/70
[2019-10-18 04:57] LABS: MEAN CORPUSCULAR HGB CONC 32.9 g/dL (33.2-36.2); MEAN CORPUSCULAR VOLUME 91.3 fL (81-97); MEAN PLATELET VOLUME 9.2 fL (7.4-10.4); PLATELET COUNT 248 x10^3/uL (130-400); RED CELL DISTRIBUTION WIDTH 13.3 % (9.4-14.8)
[2019-10-18 05:05] LABS: ANION GAP 8 mmol/L (5-15); CALCIUM 8.4 mg/dL (8.5-10.1); CHLORIDE 106 mmol/L (98-107); CREATININE 1.41 mg/dL (0.7-1.3)
[2019-10-18] MEDS: MAALOX/HYOSCYAMINE/LIDOCAINE 45 ML BTL PO PRN (05:42)
[2019-10-18] MEDS: METOPROLOL TARTRATE 25 MG TABLET PO SCH ×2 (05:42→17:50)
[2019-10-18] MEDS: ENOXAPARIN 40 MG/0.4 ML SQ SCH (05:43)
[2019-10-18 05:56] LABS: MD YES
[2019-10-18 05:57] LABS: <RBC MORPHOLOGY> NORMAL; BAND#(MANUAL) 0.78 x10^3/uL; BANDS%(MANUAL) 5 % (0-7); LYMPH#(MANUAL) 1.55 x10^3/uL (1-3.4); LYMPHS% (MANUAL) 10 % (22-44); MONOS#(MANUAL) 0.47 x10^3/uL (0.3-2.7); MONOS% (MANUAL) 3 % (2-9); SEG#(MANUAL) 12.71 x10^3/uL (1.8-6.8); SEGS% (MANUAL) 82 % (42-75)
[2019-10-18 05:58] LABS: <PLATELET ESTIMATE> ADEQUATE; <PLT MORPHOLOGY> NORMAL PLT MORPH
[2019-10-18] MEDS: INSULIN LISPRO 100 UNITS/ML, PEN SQ-INSULIN SCH ×4 (06:24→21:55)
[2019-10-18] MEDS: ISOSORBIDE MONONITRATE ER 60 MG TABLET PO SCH (08:17)
[2019-10-18] MEDS: PIOGLITAZONE 15 MG TABLET PO SCH (08:18)
[2019-10-18] MEDS: PANTOPROZOLE 40MG TABLET PO SCH (08:18)
[2019-10-18] MEDS: CLOPIDOGREL 75 MG TABLET PO SCH (08:18)
[2019-10-18] MEDS: ASPIRIN 81 MG TABLET EC PO SCH (08:18)
[2019-10-18] MEDS: TAMSULOSIN 0.4 MG CAP.ER.24H PO SCH (08:18)
[2019-10-18] MEDS: LISINOPRIL 10 MG TABLET PO SCH (08:18)
[2019-10-18] MEDS: GABAPENTIN 300 MG CAPSULE PO SCH ×3 (08:19→21:00)
[2019-10-18] MEDS: INSULIN GLARGINE 100 UNITS/ML, PEN SQ-INSULIN SCH (08:19)
[2019-10-18] MEDS: SODIUM CHLORIDE 0.9% 1,000 ML IV SCH ×2 (08:29→17:49)
[2019-10-18] MEDS: SODIUM CHLORIDE FLUSH 10ML SYR IVF SCH ×2 (08:29→21:00)
[2019-10-18 09:01] VITALS: BP 107/64
[2019-10-18 14:30] VITALS: BP 107/61
[2019-10-18 17:56] VITALS: BP 99/62
[2019-10-18 18:53] VITALS: BP 107/62
[2019-10-18] MEDS: ATORVASTATIN 40 MG TABLET PO SCH (21:55)
[2019-10-19 01:01] VITALS: BP 117/74
[2019-10-19] MEDS: SODIUM CHLORIDE 0.9% 1,000 ML IV SCH ×2 (01:06→10:30)
[2019-10-19] MEDS: METOPROLOL TARTRATE 25 MG TABLET PO SCH ×2 (03:22→17:03)
[2019-10-19 05:04] LABS: BASOPHILS # (AUTO) 0.06 x10^3/uL (0-0.1); BASOPHILS % (AUTO) 1 % (0-1); EOSINOPHILS % (AUTO) 5 % (1-7); LYMPHOCYTES % (AUTO) 33 % (22-44); MD NO; MEAN CORPUSCULAR HEMOGLOBIN 29.8 pg (27.5-34.5); MEAN CORPUSCULAR HGB CONC 32.8 g/dL (33.2-36.2); MEAN PLATELET VOLUME 8.8 fL (7.4-10.4); MONOCYTES # (AUTO) 0.68 x10^3/uL (0.2-0.8); MONOCYTES % (AUTO) 10 % (2-9); NEUTROPHILS % (AUTO) 51 % (42-75); PLATELET COUNT 225 x10^3/uL (130-400); RED BLOOD COUNT 4.06 x10^6/uL (4.38-5.82); RED CELL DISTRIBUTION WIDTH 13.1 % (9.4-14.8)
[2019-10-19] MEDS: ENOXAPARIN 40 MG/0.4 ML SQ SCH (05:04)
[2019-10-19 05:15] LABS: ALBUMIN 2.9 g/dL (3.4-5.0); ANION GAP 4 mmol/L (5-15); CALCIUM 8.1 mg/dL (8.5-10.1); CHLORIDE 110 mmol/L (98-107)
[2019-10-19 05:17] LABS: ALANINE AMINOTRANSFERASE 20 U/L (12-78); ALKALINE PHOSPHATASE 49 U/L (45-117); BILIRUBIN,TOTAL 0.6 mg/dL (0.2-1.0); CREATININE 1.27 mg/dL (0.7-1.3); TOTAL PROTEIN 5.9 g/dL (6.4-8.2)
[2019-10-19 06:49] VITALS: BP 116/66
[2019-10-19] MEDS: INSULIN LISPRO 100 UNITS/ML, PEN SQ-INSULIN SCH ×4 (07:00→20:49)
[2019-10-19] MEDS ORDERED: SINCALIDE (KINEVAC) 5 MCG ONE (09:00)
[2019-10-19] MEDS: ASPIRIN 81 MG TABLET EC PO SCH (10:31)
[2019-10-19] MEDS: SODIUM CHLORIDE FLUSH 10ML SYR IVF SCH ×2 (10:31→20:50)
[2019-10-19] MEDS: PIOGLITAZONE 15 MG TABLET PO SCH (10:32)
[2019-10-19] MEDS: CLOPIDOGREL 75 MG TABLET PO SCH (10:32)
[2019-10-19] MEDS: GABAPENTIN 300 MG CAPSULE PO SCH ×3 (10:32→20:48)
[2019-10-19] MEDS: LISINOPRIL 10 MG TABLET PO SCH (10:32)
[2019-10-19] MEDS: PANTOPROZOLE 40MG TABLET PO SCH (10:32)
[2019-10-19] MEDS: ISOSORBIDE MONONITRATE ER 60 MG TABLET PO SCH (10:32)
[2019-10-19] MEDS: TAMSULOSIN 0.4 MG CAP.ER.24H PO SCH (10:32)
[2019-10-19] MEDS: INSULIN GLARGINE 100 UNITS/ML, PEN SQ-INSULIN SCH (10:53)
[2019-10-19 12:58] VITALS: BP 118/70
[2019-10-19] MEDS ORDERED: OMNIPAQUE 350 MG/ML, 100ML BOTTLE ONE (15:01)
[2019-10-19] MEDS: ATORVASTATIN 40 MG TABLET PO SCH (20:48)
[2019-10-19] MEDS: morphine SULFATE 10 MG/ML, 1ML IVPush PRN ×2 (21:00→21:40)
[2019-10-19 21:06] VITALS: BP 123/75
[2019-10-20] VITALS (8 sets, daily range): BP systolic 109–137; BP diastolic 70–92
[2019-10-20] MEDS: METOPROLOL TARTRATE 25 MG TABLET PO SCH ×2 (04:19→18:28)
[2019-10-20] MEDS: ENOXAPARIN 40 MG/0.4 ML SQ SCH (05:27)
[2019-10-20 06:36] LABS: BASOPHILS # (AUTO) 0.05 x10^3/uL (0-0.1); BASOPHILS % (AUTO) 1 % (0-1); EOSINOPHILS # (AUTO) 0.25 x10^3/uL (0-0.4); EOSINOPHILS % (AUTO) 5 % (1-7); LYMPHOCYTES # (AUTO) 1.86 x10^3/uL (1-3.4); LYMPHOCYTES % (AUTO) 34 % (22-44); MD NO; MEAN CORPUSCULAR HGB CONC 32.9 g/dL (33.2-36.2); MEAN CORPUSCULAR VOLUME 91.2 fL (81-97); MEAN PLATELET VOLUME 9.1 fL (7.4-10.4); MONOCYTES # (AUTO) 0.55 x10^3/uL (0.2-0.8); MONOCYTES % (AUTO) 10 % (2-9); NEUTROPHILS # (AUTO) 2.74 x10^3/uL (1.8-6.8); NEUTROPHILS % (AUTO) 50 % (42-75); PLATELET COUNT 230 x10^3/uL (130-400); RED BLOOD COUNT 3.88 x10^6/uL (4.38-5.82); RED CELL DISTRIBUTION WIDTH 13.3 % (9.4-14.8)
[2019-10-20 06:44] LABS: ANION GAP 6 mmol/L (5-15); CALCIUM 8.5 mg/dL (8.5-10.1); CHLORIDE 113 mmol/L (98-107)
[2019-10-20 06:45] LABS: CREATININE 1.15 mg/dL (0.7-1.3)
[2019-10-20] MEDS ORDERED: PROPOFOL 10 MG/ML, 20ML ONE (07:30)
[2019-10-20] MEDS ORDERED: SODIUM CHLORIDE 0.9% 1,000 ML IV SCH (07:30)
[2019-10-20] MEDS: INSULIN LISPRO 100 UNITS/ML, PEN SQ-INSULIN SCH ×4 (08:43→20:37)
[2019-10-20] MEDS: INSULIN GLARGINE 100 UNITS/ML, PEN SQ-INSULIN SCH (08:43)
[2019-10-20] MEDS: SODIUM CHLORIDE FLUSH 10ML SYR IVF SCH ×2 (08:45→20:39)
[2019-10-20] MEDS: GABAPENTIN 300 MG CAPSULE PO SCH ×3 (09:45→20:36)
[2019-10-20] MEDS: PANTOPROZOLE 40MG TABLET PO SCH ×2 (09:45→20:36)
[2019-10-20] MEDS: TAMSULOSIN 0.4 MG CAP.ER.24H PO SCH (09:45)
[2019-10-20] MEDS: CLOPIDOGREL 75 MG TABLET PO SCH (09:45)
[2019-10-20] MEDS: LISINOPRIL 10 MG TABLET PO SCH (09:45)
[2019-10-20] MEDS: ASPIRIN 81 MG TABLET EC PO SCH (09:45)
[2019-10-20] MEDS: PIOGLITAZONE 15 MG TABLET PO SCH (09:45)
[2019-10-20] MEDS: ISOSORBIDE MONONITRATE ER 60 MG TABLET PO SCH (09:45)
[2019-10-20] MEDS ORDERED: SIMETHICONE 125 MG CHEW TAB PO PRN (12:30)
[2019-10-20] MEDS: morphine SULFATE 10 MG/ML, 1ML IVPush PRN ×2 (12:57→20:36)
[2019-10-20 17:20] LABS: TROPONIN I < 0.015 ng/mL (0.000-0.045)
[2019-10-20] MEDS: ATORVASTATIN 40 MG TABLET PO SCH (20:36)
[2019-10-20 23:25] LABS: TROPONIN I < 0.015 ng/mL (0.000-0.045)
[2019-10-21 00:20] VITALS: BP 100/61
[2019-10-21 04:27] LABS: TROPONIN I < 0.015 ng/mL (0.000-0.045)
[2019-10-21] MEDS: ENOXAPARIN 40 MG/0.4 ML SQ SCH (05:26)
[2019-10-21] MEDS: METOPROLOL TARTRATE 25 MG TABLET PO SCH ×2 (05:27→16:44)
[2019-10-21 07:39] LABS: BASOPHILS # (AUTO) 0.06 x10^3/uL (0-0.1); BASOPHILS % (AUTO) 1 % (0-1); EOSINOPHILS # (AUTO) 0.37 x10^3/uL (0-0.4); EOSINOPHILS % (AUTO) 6 % (1-7); LYMPHOCYTES # (AUTO) 1.95 x10^3/uL (1-3.4); LYMPHOCYTES % (AUTO) 31 % (22-44); MD NO; MEAN CORPUSCULAR HGB CONC 32.6 g/dL (33.2-36.2); MEAN CORPUSCULAR VOLUME 91.9 fL (81-97); MEAN PLATELET VOLUME 8.8 fL (7.4-10.4); MONOCYTES # (AUTO) 0.54 x10^3/uL (0.2-0.8); MONOCYTES % (AUTO) 9 % (2-9); NEUTROPHILS # (AUTO) 3.33 x10^3/uL (1.8-6.8); NEUTROPHILS % (AUTO) 53 % (42-75); PLATELET COUNT 234 x10^3/uL (130-400); RED BLOOD COUNT 4.11 x10^6/uL (4.38-5.82); RED CELL DISTRIBUTION WIDTH 13.7 % (9.4-14.8)
[2019-10-21 07:42] LABS: CHLORIDE 112 mmol/L (98-107)
[2019-10-21 07:47] LABS: ANION GAP 5 mmol/L (5-15); CALCIUM 8.5 mg/dL (8.5-10.1); CREATININE 1.12 mg/dL (0.7-1.3)
[2019-10-21 08:00] VITALS: BP 127/83
[2019-10-21] MEDS: morphine SULFATE 10 MG/ML, 1ML IVPush PRN ×4 (09:20→21:40)
[2019-10-21] MEDS ORDERED: OMNIPAQUE 350 MG/ML, 100ML BOTTLE ONE (09:42)
[2019-10-21] MEDS: PANTOPROZOLE 40MG TABLET PO SCH ×2 (10:16→21:24)
[2019-10-21] MEDS: GABAPENTIN 300 MG CAPSULE PO SCH ×3 (10:16→21:24)
[2019-10-21] MEDS: CLOPIDOGREL 75 MG TABLET PO SCH (10:17)
[2019-10-21] MEDS: TAMSULOSIN 0.4 MG CAP.ER.24H PO SCH (10:17)
[2019-10-21] MEDS: ASPIRIN 81 MG TABLET EC PO SCH (10:17)
[2019-10-21] MEDS: ISOSORBIDE MONONITRATE ER 60 MG TABLET PO SCH (10:17)
[2019-10-21] MEDS: PIOGLITAZONE 15 MG TABLET PO SCH (10:17)
[2019-10-21] MEDS: LISINOPRIL 10 MG TABLET PO SCH (10:17)
[2019-10-21] MEDS: INSULIN GLARGINE 100 UNITS/ML, PEN SQ-INSULIN SCH (10:19)
[2019-10-21] MEDS: INSULIN LISPRO 100 UNITS/ML, PEN SQ-INSULIN SCH ×4 (10:19→21:25)
[2019-10-21] MEDS: SODIUM CHLORIDE FLUSH 10ML SYR IVF SCH ×2 (12:31→21:25)
[2019-10-21 13:30] VITALS: BP 116/72
[2019-10-21 20:08] VITALS: BP 133/80
[2019-10-21] MEDS: RANOLAZINE 500 MG TAB.ER.12H PO SCH (21:24)
[2019-10-21] MEDS: ATORVASTATIN 40 MG TABLET PO SCH (21:25)
[2019-10-22] MEDS: MAALOX/HYOSCYAMINE/LIDOCAINE 45 ML BTL PO PRN ×2 (01:07→11:15)
[2019-10-22 02:25] VITALS: BP 137/77
[2019-10-22] MEDS: METOPROLOL TARTRATE 25 MG TABLET PO SCH ×2 (06:00→17:14)
[2019-10-22] MEDS: ENOXAPARIN 40 MG/0.4 ML SQ SCH (06:00)
[2019-10-22 07:05] LABS: BASOPHILS # (AUTO) 0.04 x10^3/uL (0-0.1); BASOPHILS % (AUTO) 1 % (0-1); EOSINOPHILS % (AUTO) 4 % (1-7); LYMPHOCYTES # (AUTO) 1.67 x10^3/uL (1-3.4); LYMPHOCYTES % (AUTO) 23 % (22-44); MD NO; MEAN CORPUSCULAR HEMOGLOBIN 29.9 pg (27.5-34.5); MEAN CORPUSCULAR HGB CONC 32.4 g/dL (33.2-36.2); MEAN CORPUSCULAR VOLUME 92.2 fL (81-97); MEAN PLATELET VOLUME 8.8 fL (7.4-10.4); MONOCYTES # (AUTO) 0.57 x10^3/uL (0.2-0.8); MONOCYTES % (AUTO) 8 % (2-9); NEUTROPHILS # (AUTO) 4.67 x10^3/uL (1.8-6.8); NEUTROPHILS % (AUTO) 64 % (42-75); PLATELET COUNT 251 x10^3/uL (130-400); RED BLOOD COUNT 4.16 x10^6/uL (4.38-5.82); RED CELL DISTRIBUTION WIDTH 13.7 % (9.4-14.8)
[2019-10-22 07:16] LABS: ANION GAP 7 mmol/L (5-15); CALCIUM 8.4 mg/dL (8.5-10.1); CHLORIDE 109 mmol/L (98-107)
[2019-10-22 07:17] LABS: CREATININE 1.22 mg/dL (0.7-1.3)
[2019-10-22 07:19] VITALS: BP 139/92
[2019-10-22] MEDS: GABAPENTIN 300 MG CAPSULE PO SCH ×2 (07:59→16:27)
[2019-10-22] MEDS: PANTOPROZOLE 40MG TABLET PO SCH (07:59)
[2019-10-22] MEDS: ISOSORBIDE MONONITRATE ER 60 MG TABLET PO SCH (07:59)
[2019-10-22] MEDS: CLOPIDOGREL 75 MG TABLET PO SCH (07:59)
[2019-10-22] MEDS: ASPIRIN 81 MG TABLET EC PO SCH (07:59)
[2019-10-22] MEDS: RANOLAZINE 500 MG TAB.ER.12H PO SCH (07:59)
[2019-10-22] MEDS: TAMSULOSIN 0.4 MG CAP.ER.24H PO SCH (07:59)
[2019-10-22] MEDS: LISINOPRIL 10 MG TABLET PO SCH (07:59)
[2019-10-22] MEDS: PIOGLITAZONE 15 MG TABLET PO SCH (07:59)
[2019-10-22] MEDS: INSULIN LISPRO 100 UNITS/ML, PEN SQ-INSULIN SCH ×3 (08:00→17:13)
[2019-10-22] MEDS: INSULIN GLARGINE 100 UNITS/ML, PEN SQ-INSULIN SCH (08:00)
[2019-10-22] MEDS: SODIUM CHLORIDE FLUSH 10ML SYR IVF SCH (08:01)
[2019-10-22] MEDS ORDERED: CALCIUM CARBONATE 500 MG TAB.CHEW PO PRN (11:00)
[2019-10-22] MEDS: SUCRALFATE 1 GM/10 ML UDC PO SCH ×2 (11:15→16:27)
[2019-10-22 12:51] VITALS: BP 89/61
[2019-10-22 14:52] VITALS: BP 110/71
[2019-10-22] MEDS ORDERED: FUROSEMIDE 20 MG/2 ML IV ONE (16:30)
[2019-10-22] MEDS ORDERED: DOCU100C33 PO (18:56)
[2019-10-22] MEDS ORDERED: SUCR1ORA5 PO (18:56)
[2019-10-22] MEDS ORDERED: PANT40TA5 PO (18:56)
[2019-10-22] MEDS ORDERED: CALC200T24 PO (18:56)
[2019-10-22] MEDS ORDERED: RANO500T2 PO (18:56)
== END 2019-10-23 01:20 | disposition home or self-care (01) | DRG 392 ==
LOC: ED 22:31 → EDIP 23:01 → CCU 10-17 11:33 → 4WST 10-18 17:42
PROVIDERS: ADMIT Family Medicine; ATTEND Internal Medicine
PROC: 0DB98ZX Excision of Duodenum, Via Natural or Artificial Opening Endoscopic, Diagnostic (ICD-10-PCS; 2019-10-20)
PROC: 0DB68ZX Excision of Stomach, Via Natural or Artificial Opening Endoscopic, Diagnostic (ICD-10-PCS; 2019-10-20)
PROC: 5A09357 Assistance with Respiratory Ventilation, Less than 24 Consecutive Hours, Continuous Positive Airway Pressure (ICD-10-PCS; principal; 2019-10-20 07:30)
PROC: 5A09357 Assistance with Respiratory Ventilation, Less than 24 Consecutive Hours, Continuous Positive Airway Pressure (ICD-10-PCS; 2019-10-22)
DX: K21.9 Gastro-esophageal reflux disease without esophagitis (principal); I25.110 Atherosclerotic heart disease of native coronary artery with unstable angina pectoris; K29.80 Duodenitis without bleeding; K29.70 Gastritis, unspecified, without bleeding; E11.9 Type 2 diabetes mellitus without complications; D72.829 Elevated white blood cell count, unspecified; K22.8 Other specified diseases of esophagus; E83.42 Hypomagnesemia; I11.9 Hypertensive heart disease without heart failure; R19.7 Diarrhea, unspecified; K44.9 Diaphragmatic hernia without obstruction or gangrene; E78.5 Hyperlipidemia, unspecified; R51 Headache; R42 Dizziness and giddiness; K76.0 Fatty (change of) liver, not elsewhere classified; N40.0 Benign prostatic hyperplasia without lower urinary tract symptoms; Z96.611 Presence of right artificial shoulder joint; Z82.49 Family history of ischemic heart disease and other diseases of the circulatory system; Z86.73 Personal history of transient ischemic attack (TIA), and cerebral infarction without residual deficits; Z87.891 Personal history of nicotine dependence; Z79.4 Long term (current) use of insulin; Z95.5 Presence of coronary angioplasty implant and graft
CPT/HCPCS: 36415; 71045; 71275; 74018; 74170; 76700; 78227; 80048; 80053; 82962; 83036; 83690; 83735; 83880; 84100; 84145; 84484; 85025; 87081; 88305; 93005; 93306; 99285; G0378; J1650; J2405; J2704; Q9967; A9510; J1815; J1940; J2270; J2805; J3475; J7030

== ENCOUNTER 2019-11-04 06:55 | Day surgery (SDC) | payer OTHER, MEDICARE ==
[~2019-11-04] VITALS: Ht 190.5 cm; Wt 108.1 kg
[~2019-11-04 06:55] MED LIST changes: +CALC200T24 PO; +DOCU100C33 PO; +RANO500T2 PO; +SUCR1ORA5 PO
[2019-11-04] MEDS ORDERED: LACTATED RINGERS 1,000 ML IV SCH (07:59)
[2019-11-04] MEDS ORDERED: CLOP75TA52 PO (08:08)
[2019-11-04] MEDS ORDERED: METO25TA35 PO (08:08)
[2019-11-04] MEDS ORDERED: RANO500T2 PO (08:08)
[2019-11-04] MEDS ORDERED: ISOS60TA36 PO (08:08)
[2019-11-04] MEDS ORDERED: LISI-167 PO (08:08)
[2019-11-04 08:10] VITALS: BP 144/92
[2019-11-04] MEDS ORDERED: PROPOFOL 10 MG/ML, 20ML ONE (08:14)
[2019-11-04] MEDS ORDERED: PROPOFOL 10 MG/ML, 50ML ONE (08:14)
[2019-11-04] MEDS ORDERED: EPHEDRINE 50 MG/ML, 1ML IVPush PRN (08:30)
[2019-11-04] MEDS ORDERED: METOPROLOL 1 MG/ML, 5ML IV PRN (08:30)
[2019-11-04] MEDS ORDERED: DIAZEPAM 5 MG/ML, 2ML IVPush PRN (08:30)
[2019-11-04] MEDS ORDERED: ONDANSETRON ODT 8 MG PO PRN (08:30)
[2019-11-04] MEDS ORDERED: OXYcodone 5 MG/5 ML ORAL.SOL UDC PO PRN (08:30)
[2019-11-04] MEDS ORDERED: FENTANYL PF 100 MCG/2ML IV PRN (08:30)
[2019-11-04] MEDS ORDERED: hydrALAzine 20 MG/ML, 1ML IV PRN (08:30)
[2019-11-04] MEDS ORDERED: MEPERIDINE/PF 25MG/ML,1ML IVPush PRN (08:30)
[2019-11-04] MEDS ORDERED: EPHEDRINE 50 MG/ML, 1ML IM PRN (08:30)
[2019-11-04] MEDS ORDERED: ONDANSETRON 2MG/ML, 2ML IV PRN (08:30)
[2019-11-04] MEDS ORDERED: ACETAMINOPHEN 325 MG TABLET PO PRN (08:30)
[2019-11-04] MEDS ORDERED: DIPHENHYDRAMINE 50 MG/ML, 1ML IVPush PRN (08:30)
== END 2019-11-04 10:10 | disposition home or self-care (01) ==
LOC: OUT 06:55
PROVIDERS: ATTEND Internal Medicine Gastroenterology
DX: R10.32 Left lower quadrant pain (principal); K57.30 Diverticulosis of large intestine without perforation or abscess without bleeding; K64.8 Other hemorrhoids; I25.10 Atherosclerotic heart disease of native coronary artery without angina pectoris; E11.9 Type 2 diabetes mellitus without complications; I10 Essential (primary) hypertension; Z88.1 Allergy status to other antibiotic agents; Z79.84 Long term (current) use of oral hypoglycemic drugs
CPT/HCPCS: 45380; 82962; 88305; J2704; J7120

== ENCOUNTER 2020-03-28 11:37 | Emergency (ER) | payer OTHER, MEDICARE ==
[~2020-03-28] VITALS: Ht 190.5 cm; Wt 109.5 kg
[~2020-03-28 11:37] MED LIST changes: +ALBU18HF INH; +ALPR0.5T7 PO; +AMLO-150 PO; +BENZ200C48 PO; +EREN70AU2 SC; +SIMV20TA19; -SIMV20TA3; +VERA120T13 PO; -VERA120T5 PO
[2020-03-28 12:35] LABS: BASOPHILS # (AUTO) 0.06 x10^3/uL (0-0.1); BASOPHILS % (AUTO) 1 % (0-1); EOSINOPHILS # (AUTO) 0.19 x10^3/uL (0-0.4); EOSINOPHILS % (AUTO) 3 % (1-7); LYMPHOCYTES # (AUTO) 1.62 x10^3/uL (1-3.4); LYMPHOCYTES % (AUTO) 26 % (22-44); MD NO; MEAN CORPUSCULAR HEMOGLOBIN 30.5 pg (27.5-34.5); MEAN CORPUSCULAR VOLUME 92.3 fL (81-97); MEAN PLATELET VOLUME 9.5 fL (7.4-10.4); MONOCYTES # (AUTO) 0.57 x10^3/uL (0.2-0.8); MONOCYTES % (AUTO) 9 % (2-9); NEUTROPHILS # (AUTO) 3.86 x10^3/uL (1.8-6.8); NEUTROPHILS % (AUTO) 61 % (42-75); PLATELET COUNT 252 x10^3/uL (130-400); RED BLOOD COUNT 4.59 x10^6/uL (4.38-5.82); RED CELL DISTRIBUTION WIDTH 13.6 % (9.4-14.8)
[2020-03-28 12:46] LABS: ALANINE AMINOTRANSFERASE 28 U/L (12-78); ALBUMIN 3.5 g/dL (3.4-5.0); ANION GAP 7 mmol/L (5-15); CALCIUM 8.5 mg/dL (8.5-10.1); CHLORIDE 107 mmol/L (98-107); CREATININE 1.26 mg/dL (0.7-1.3)
--- NOTE | 2020-03-28 12:46 | NUR ---
PT AMBULATED TO THE BR W/ A STEADY GAIT.
[2020-03-28 12:48] LABS: ALKALINE PHOSPHATASE 66 U/L (45-117); BILIRUBIN,TOTAL 0.6 mg/dL (0.2-1.0); TOTAL PROTEIN 6.9 g/dL (6.4-8.2)
--- NOTE | 2020-03-28 13:13 | NUR ---
ALL TESTS RESULTED. PT IS UP FOR RECHECK AT THIS TIME. RESP EVEN AND UNLABORED, VSS, NADN.
[2020-03-28 13:57] VITALS: BP 108/73
--- NOTE | 2020-03-28 13:58 | NUR ---
Patient given discharge instructions and they have confirmed that they understand the instructions. Patient ambulatory with steady gait.
== END 2020-03-28 14:09 | disposition home or self-care (01) ==
LOC: ED 13:51
DX: R06.00 Dyspnea, unspecified (principal); Z20.828 Contact with and (suspected) exposure to other viral communicable diseases; R05 Cough; R11.2 Nausea with vomiting, unspecified; R19.7 Diarrhea, unspecified; I10 Essential (primary) hypertension; E11.9 Type 2 diabetes mellitus without complications; Z86.73 Personal history of transient ischemic attack (TIA), and cerebral infarction without residual deficits
CPT/HCPCS: 36415; 71046; 80053; 83690; 85025; 99284; U0001

== ENCOUNTER → 2020-10-09 | Outpatient (CLI) | payer OTHER, MEDICARE ==
[~2020-10-09] MED LIST changes: +GADOTERATE 5 MMOL/10 ML VIAL ONE; +GADOTERATE 7.5 MMOL/15 ML VIAL ONE; -PANT40TA5 PO; +PANT40TA6 PO
== END | disposition home or self-care (01) ==
LOC: RAD 14:18
PROVIDERS: ATTEND Registered Nurse
DX: R41.3 Other amnesia (principal)
CPT/HCPCS: 70553; A9575

== ENCOUNTER → 2020-10-11 | Outpatient (CLI) | payer OTHER, MEDICARE ==
[~2020-10-11] MED LIST changes: -GADOTERATE 5 MMOL/10 ML VIAL ONE; -GADOTERATE 7.5 MMOL/15 ML VIAL ONE
== END | disposition home or self-care (01) ==
LOC: RAD 06:35
PROVIDERS: ATTEND Internal Medicine Gastroenterology
DX: R14.0 Abdominal distension (gaseous) (principal); R19.4 Change in bowel habit; A04.9 Bacterial intestinal infection, unspecified
CPT/HCPCS: 74240; 74248

== ENCOUNTER 2021-06-12 08:00 | Outpatient (CLI) | payer MEDICARE ==
[~2021-06-12 08:00] MED LIST changes: -OXYC5TAB3 PO; +OXYC5TAB98 PO
== END 2021-06-12 23:59 | disposition home or self-care (01) ==
LOC: CVU 08:00
PROVIDERS: ATTEND Internal Medicine Cardiovascular Disease
DX: R60.9 Edema, unspecified (principal)
CPT/HCPCS: 93970